=== PATIENT | female | born 1990 | race Caucasian/White ===

== ENCOUNTER 2016-10-05 18:16 | Emergency (ER) | payer OTHER ==
[~2016-10-05] VITALS: Ht 152.4 cm; Wt 47.1 kg
[~2016-10-05 18:16] MED LIST: ANSHCCR TOP; LEVO-713 PO; TRAM-10 PO
[2016-10-05 18:19] VITALS: TEMP 37.1; Ht 152.4 cm; Wt 47.1 kg
--- NOTE | 2016-10-05 19:02 | DIAGNOSTIC IMAGING REPORT ---
LEFT SHOULDER MIN 2 VIEWS ROUTINE CLINICAL HISTORY: left shoulder pain, no injury pain COMPARISON: None. DISCUSSION: The bones and joint spaces appear intact. There is no evidence of fracture, dislocation or bony disease. There is no evidence for soft tissue swelling. IMPRESSION: Negative study. Electronically signed by: Jairo Duncan M.D. 10/05/2016 7:00 PM Dictated Date/Time: 10/05/2016 7:00 PM
[2016-10-05] MEDS ORDERED: CEFTRIAXONE SOD 350MG/ML 1 GM VIAL IM ONE (19:30)
[2016-10-05] MEDS ORDERED: AZITHROMYCIN 250 MG TAB PO ONE (19:30)
--- NOTE | 2016-10-05 19:32 | EMERGENCY ROOM VISIT NOTE ---
ED Visit Note First contact with patient: 18:24 CHIEF COMPLAINT: Shoulder pain HISTORY OF PRESENT ILLNESS: This 26-year-old female patient presents to the emergency department ambulatory complaining of pain in the left shoulder for the past 2 days. 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 She states the pain is minimal at rest, but worsens with any overhead movements. She rates the discomfort a 7/ 10. She is not taking any medications at home for symptoms. She denies any injuries of the shoulder. She denies any history of shoulder problems. She denies any numbness or weakness of the left arm. She denies any pain in her neck, back or chest. The patient is also concerned because her ex-boyfriend recently informed her that he tested positive for herpes. She is concerned for possible STDs. She denies any painful lesions, itching or abnormal vaginal discharge. Additionally, she reports that she had 2 menstrual periods this month. She reports that she takes control pills and takes her pills everyday as prescribed. She denies any abdominal cramping at this time. She has any urinary symptoms or chance of . REVIEW OF SYSTEMS: A 6 system review of systems was performed with positives and pertinent negatives in the HPI. ALLERGIES: Amoxicillin MEDICATIONS: See med list PMH: No significant past medical history. SOCIAL HISTORY: The patient lives locally with family. PHYSICAL EXAM: Vital Signs: Reviewed nurse's notes, vital signs stable. GENERAL: This is a 26-year-old female, in no acute distress, but appears to be in pain, well-developed, well-nourished. MUSCULOSKELETAL: There is no deformity in the contour of the left shoulder and there are no tawanna deformities noted. There is tenderness over the anterior left shoulder. The patient's range of motion is full. Supraspinatus strength 5/ 5. There is no clavicle tenderness. No tenderness of the humerus, elbow, wrist, or hand. Sharepoint Manager strength 5/5. Radial pulse 2+. NECK: No tenderness to palpation over the cervical spine. HEART: Regular rate and rhythm without murmurs gallops or rubs. LUNGS: Clear to auscultation bilaterally without wheezes, rales or rhonchi. No accessory muscle use. No retractions. NEURO: The patient is alert and oriented to person, place, and time. Normal sensation to light and sharp touch. Capillary refill less than 2 seconds. ABDOMEN: Soft, nontender to palpation. PELVIC: External genitalia unremarkable. No concerning lesions. There is a moderate amount of whitish discharge within the vaginal vault. No evidence of cervicitis. No cervical motion tenderness. RADIOGRAPHIC FINDINGS: LEFT SHOULDER MIN 2 VIEWS ROUTINE CLINICAL HISTORY: left shoulder pain, no injury pain COMPARISON: None. DISCUSSION: The bones and joint spaces appear intact. There is no evidence of fracture, dislocation or bony disease. There is no evidence for soft tissue swelling. IMPRESSION: Negative study. EMERGENCY DEPARTMENT COURSE: I examined the patient. An X-ray of the left shoulder was reviewed by myself and radiology and shows no acute findings. The patient was instructed to rest, take anti-inflammatories and follow-up with orthopedics regarding her shoulder pain. Urine was negative. A pelvic exam was performed and cultures were obtained and pending. The patient was offered prophylactic treatment for gonorrhea and chlamydia and agreed to this. She was given 250 milligrams Rocephin IM and 1 g Zithromax by mouth. She will be notified of any positive results. She was instructed to follow-up with her [facility] regarding her abnormal menstrual bleeding. She will return for worsening symptoms. She verbalized understanding and was discharged home in good condition. DIAGNOSIS: Shoulder pain, vaginal discharge Problem List Medical Problems: (1) Acute gastric ulcer Status: Resolved (2) Bipolar disorder Status: Chronic (3) Bronchitis Status: Resolved (4) Depression Status: Chronic (5) H/O gastric ulcer Status: Chronic (6) H/o marijuana abuse Status: Chronic (7) H/o tobacco abuse Status: Chronic (8) Kidney stones Status: Resolved Surgical Problems: (1) H/O wisdom tooth extraction Status: Chronic (2) S/P ear surgery Status: Chronic Current/Historical Medications Scheduled Citalopram (Citalopram Hydrobromide), 20 MG PO DAILY Levonorgestrel & Eth Estradiol (Lutera), 1 TAB PO DAILY Scheduled PRN Hydrocortisone (Proctosol Hc), 1 APPLN TOP UD PRN for Hemorrhoids Tramadol (Ultram), 1-2 TAB PO Q4H PRN for Pain Allergies Coded Allergies: Amoxicillin (Unverified Allergy, Unknown, ITCHY, REDNESS, 10/05/16) Vital Signs Date Time Temp Pulse Resp B/P Pulse Ox O2 Delivery O2 Flow Rate FiO2 10/05/16 18:19 37.1 95 17 135/89 91 Room Air Laboratory Results Test 10/05/16 18:45 Urine Test NEG (NEG) Departure Information Impression Primary Impression: Left shoulder pain Additional Impression: Vaginal discharge Dispostion Home / Self-Care Condition GOOD Referrals Sherice Cross D.O. (PCP) Kit Muñiz M.D. Patient Instructions My [facility] Additional Instructions You have been treated in the Emergency Department for Shoulder Pain. You will be notified if any of your culture results become positive. For pain control, you can use the following [id number] medicines (if >12 yo): - Regular strength (325mg/tab) Tylenol (acetaminophen) 2 tabs every 4-6 hours as needed. Do not exceed 12 tablets in a 24 hour period. Avoid taking more than 4 grams (4000 mg) of Tylenol per day. This includes any other sources of acetaminophen you may take on a regular basis. - Regular strength (200 mg/tab) Advil (ibuprofen) 1-2 tabs every 4-6 hours as needed. Do not exceed a dose of 3200 mg per day. If this is a recent injury (<24 hrs), ice can be applied to the area of pain for the first 3 days to help decrease pain and inflammation. You should follow-up with orthopedics regarding your left shoulder pain. Follow-up with [facility] as scheduled next week. Return to the Emergency Department if your current symptoms worsen despite treatment course outlined above, or if you develop any of the following symptoms : intractable pain despite aforementioned treatment course or new onset of numbness or tingling of the arm. Problem Qualifiers Primary Impression: Left shoulder pain Chronicity: acute Qualified Codes: M25.512 - Pain in left shoulder
[2016-10-05 19:52] VITALS: BP 111/54; PULSE 67; O2SAT 97
[2016-10-09 09:32] LABS: CHLAMYDIA TRACH RNA*** NOT DETECTED (NOT DETECTED); GC (NEIS GONORRHOEAE)RNA** NOT DETECTED (NOT DETECTED)
[2017-04-12] MEDS ORDERED: CLX/20 PO (16:48)
== END 2016-10-05 19:53 | disposition home or self-care (01) ==
LOC: C.EDB 18:18 → C.EDD 19:53
DX: M25.512 Pain in left shoulder (principal); N89.8 Other specified noninflammatory disorders of vagina; F31.9 Bipolar disorder, unspecified; F32.9 Major depressive disorder, single episode, unspecified; K25.9 Gastric ulcer, unspecified as acute or chronic, without hemorrhage or perforation; F12.10 Cannabis abuse, uncomplicated; Z72.0 Tobacco use; Z87.442 Personal history of urinary calculi; Z79.3 Long term (current) use of hormonal contraceptives; Z79.899 Other long term (current) drug therapy

== ENCOUNTER 2016-11-11 10:18 | Emergency (ER) | payer OTHER ==
[~2016-11-11] VITALS: Ht 152.4 cm; Wt 47.0 kg
[2016-11-11 10:32] VITALS: TEMP 37.1; Ht 152.4 cm; Wt 47.0 kg
[2016-11-11] MEDS ORDERED: SODIUM CHLORIDE 0.9% 1000ML 1,000 ML IV STA (10:45)
[2016-11-11] MEDS ORDERED: KETOROLAC TROMETHAMINE 30 MG/ML VIAL IV STA (10:45)
[2016-11-11] MEDS ORDERED: ALBUT/IPRATROP 3MG/0.5MG NEB 3 ML VIAL INH ONE (10:45)
--- NOTE | 2016-11-11 10:48 | EMERGENCY ROOM VISIT NOTE ---
History Report prepared by Freddy: Ra Lovell Under the Supervision of: Dr. Sly Estrada M.D. First contact with patient: 10:39 Chief Complaint: ILLNESS Stated Complaint: CHEST PAIN History of Present Illness The patient is a 26 year old female who presents to the Emergency Room with complaints of persistent chest pain beginning a couple days ago. She notes that she has GERD and initially thought this was reflux, but adds that her symptoms are worse today. She reports that taking deep breaths worsens her pain, and that her pain radiates to her sides. She has not taken anything for her pain. The patient adds that she has been shaking a lot recently. She also complains of abdominal cramps, and reports switching her control medication last month. She states having 4 periods in the last 2 months. The patient smokes but is in the process of quitting. She does not use inhalers, and is unsure if she is . Source of History: patient Onset: a couple days ago Position: chest Quality: other (chest pain) Timing: other (persistent) Modifying Factors (Worsening): breathing (deep breaths) Associated Symptoms: + abdominal pain Note: The patient reports recent shakiness. Review of Systems See HPI for pertinent positives & negatives. A total of 10 systems reviewed and were otherwise negative. Past Medical & Surgical Medical Problems: (1) Acute gastric ulcer (2) Bipolar disorder (3) Bronchitis (4) Clostridium difficile colitis (5) Depression (6) H/O gastric ulcer (7) H/o marijuana abuse (8) H/o tobacco abuse (9) Kidney stones Surgical Problems: (1) H/O wisdom tooth extraction (2) S/P ear surgery Family History Cancer FH: gallbladder disease MOTHER SISTER Heart disease Social History Smoking Status: Current Every Day Smoker Alcohol Use: occasionally Drug Use: marijuana Marital Status: in relationship Housing Status: lives with family Occupation Status: employed Current/Historical Medications Scheduled Azithromycin (Zithromax), 250 MG PO DAILY Citalopram (Citalopram Hydrobromide), 20 MG PO DAILY Levonorgestrel & Eth Estradiol (Lutera), 1 TAB PO DAILY Prednisone (Prednisone Tab), 0 PO DAILY Scheduled PRN Hydrocodone W/ Homatropine (Hycodan 5/1.5MG 5 Ml), 5 ML PO HS PRN for Cough Allergies Coded Allergies: Amoxicillin (Unverified Allergy, Unknown, ITCHY, REDNESS, 11/11/16) Physical Exam Vital Signs Date Time Temp Pulse Resp B/P Pulse Ox O2 Delivery O2 Flow Rate FiO2 11/11/16 13:10 69 18 96/66 100 11/11/16 12:16 69 18 96/66 100 Nebulizer 8.0 11/11/16 12:02 58 12 96 Room Air 11/11/16 10:55 68 11/11/16 10:51 96 Room Air 11/11/16 10:51 96 Room Air 11/11/16 10:32 37.1 90 18 118/71 96 Room Air Physical Exam GENERAL: Patient is a healthy-appearing well-nourished HEAD: Normocephalic atraumatic EYES: Ocular movements intact pupils equal and react to light OROPHARYNX mucous membranes are moist no exudates present no erythema or edema present NECK: Supple no nuchal rigidity CHEST: Chest wall tender to palpation. LUNGS: Bilateral wheezing. CARDIAC: Normal S1 and S2 ABDOMEN: Soft nontender no guarding BACK: No CVA tenderness EXTREMITIES: No pain upon palpation normal muscle strength in all groups no clubbing cyanosis or edema NEURO: Patient is following commands is answering questions appropriately. Alert and oriented x3 Cranial Nerves 2-12 grossly intact Medical Decision & Procedures ER Provider Diagnostic Interpretation: Radiology results as stated below per my review and radiologist interpretation: CHEST ONE VIEW PORTABLE FINDINGS: There is no pneumothorax or pleural effusion. Lung volumes are normal. Lungs are clear. Cardiac size is normal. Mediastinal contours are normal. There is no evidence of pulmonary edema. IMPRESSION: No acute cardiopulmonary findings. Electronically signed by: Blake Francois M.D. 11/11/2016 11:28 AM Dictated Date/Time: 11/11/2016 11:26 AM Laboratory Results 11/11/16 11:07 Red Blood Count 4.53, Mean Corpuscular Volume 89.0, Mean Corpuscular Hemoglobin 30.5, Mean Corpuscular Hemoglobin Concent 34.2, Mean Platelet Volume 10.0, Neutrophils (%) (Auto) 77.6, Lymphocytes (%) (Auto) 17.5, Monocytes (%) (Auto) 3.4, Eosinophils (%) (Auto) 0.8, Basophils (%) (Auto) 0.3, Neutrophils # (Auto) 11.12, Lymphocytes # (Auto) 2.50, Monocytes # (Auto) 0.49, Eosinophils # (Auto) 0.11, Basophils # (Auto) 0.04 11/11/16 11:07 Test 11/11/16 10:45 11/11/16 11:07 11/11/16 11:09 11/11/16 11:13 Urine Color YELLOW Urine Appearance CLEAR (CLEAR) Urine pH 5.5 (4.5-7.5) Urine Specific [place] 1.025 (1.000-1.030) Urine Protein NEG (NEG) Urine Glucose (UA) NEG (NEG) Urine Ketones NEG (NEG) Urine Occult Blood NEG (NEG) Urine Nitrite NEG (NEG) Urine Bilirubin NEG (NEG) Urine Urobilinogen NEG (NEG) Urine Leukocyte Esterase SMALL (NEG) Urine WBC (Auto) 5-10 /hpf (0-5) Urine RBC (Auto) 0-4 /hpf (0-4) Urine Hyaline Casts (Auto) 1-5 /lpf (0-5) Urine Epithelial Cells (Auto) >30 /lpf (0-5) Urine Bacteria (Auto) 1+ (NEG) Urine Test NEG (NEG) White Blood Count 14.32 K/uL (4.8-10.8) Red Blood Count 4.53 M/uL (4.2-5.4) Hemoglobin 13.8 g/dL (12.0-16.0) Hematocrit 40.3 % (37-47) Mean Corpuscular Volume 89.0 fL (80-100) Mean Corpuscular Hemoglobin 30.5 pg (25-34) Mean Corpuscular Hemoglobin Concent 34.2 g/dl (32-36) Platelet Count 316 K/uL (130-400) Mean Platelet Volume 10.0 fL (7.4-10.4) Neutrophils (%) (Auto) 77.6 % Lymphocytes (%) (Auto) 17.5 % Monocytes (%) (Auto) 3.4 % Eosinophils (%) (Auto) 0.8 % Basophils (%) (Auto) 0.3 % Neutrophils # (Auto) 11.12 K/uL (1.4-6.5) Lymphocytes # (Auto) 2.50 K/uL (1.2-3.4) Monocytes # (Auto) 0.49 K/uL (0.11-0.59) Eosinophils # (Auto) 0.11 K/uL (0-0.5) Basophils # (Auto) 0.04 K/uL (0-0.2) RDW Standard Deviation 45.6 fL (36.4-46.3) RDW Coefficient of Variation 13.8 % (11.5-14.5) Immature Granulocyte % (Auto) 0.4 % Immature Granulocyte # (Auto) 0.06 K/uL (0.00-0.02) Est Creatinine Clear Calc Drug Dose 77.8 ml/min Estimated GFR () 120.8 Estimated GFR (Non- 104.2 BUN/Creatinine Ratio 17.3 (10-20) Calcium Level 8.4 mg/dl (8.5-10.1) Total Bilirubin 0.3 mg/dl (0.2-1) Direct Bilirubin < 0.1 mg/dl (0-0.2) Aspartate Amino Transf (AST/SGOT) 9 U/L (15-37) Alanine Aminotransferase (ALT/SGPT) 12 U/L (12-78) Alkaline Phosphatase 61 U/L (45-117) Total Creatine Kinase 86 U/L (26-192) Creatine Kinase MB 1.1 ng/ml (0.5-3.6) Creatine Kinase MB Ratio 1.3 (0-3.0) Troponin I < 0.015 ng/ml (0-0.045) Total Protein 7.1 gm/dl (6.4-8.2) Albumin 3.4 gm/dl (3.4-5.0) Lipase 239 U/L (73-393) Bedside D-Dimer 191 ng/mlFEU (0-450) Bedside Hemoglobin 13.6 g/dl (12.0-16.0) Bedside Hematocrit 40 % (37-47) Bedside Sodium 141 mEq/L (135-144) Bedside Potassium 4.4 mEq/L (3.3-5.0) Bedside Chloride 104 mEq/L (101-112) Bedside Total CO2 24 mEq/l (24-31) Anion Gap 19.0 mmol/L (16-25) Bedside Blood Urea Nitrogen 14 mg/dl (7-18) Bedside Creatinine 0.8 mg/dl (0.6-1.3) Bedside Glucose (other) 75 mg/dl (70-99) Bedside Ionized Calcium (Marce) 1.14 mmol/l (1.12-1.32) Labs reviewed by ED physician. Medications Administered Medications (Trade) Dose Ordered Sig/Bret Route Start Time Stop Time Status Last Admin Dose Admin Sodium Chloride (Nss 1000ml) 1,000 ml @ 999 mls/hr Q1H1M STAT IV 11/11/16 10:45 11/11/16 11:45 DC 11/11/16 10:45 999 MLS/HR Ketorolac Tromethamine (Toradol Inj) 30 mg NOW STAT IV 11/11/16 10:45 11/11/16 10:48 DC 11/11/16 10:45 30 MG Albuterol/ Ipratropium (Duoneb) 12 ml ONE ONCE INH 11/11/16 10:45 11/11/16 10:48 DC 11/11/16 12:02 12 ML Azithromycin (Zithromax Tab) 500 mg NOW STAT PO 11/11/16 12:48 11/11/16 12:50 DC 11/11/16 12:56 500 MG Methylprednisolone Sodium Succinate (Solu-Medrol IV) 60 mg NOW STAT IV 11/11/16 12:48 11/11/16 12:50 DC 11/11/16 12:57 60 MG Albuterol (Ventolin Hfa Inhaler) 2 puffs NOW STAT INH 11/11/16 12:49 11/11/16 12:50 DC 11/11/16 12:57 2 PUFFS ECG Indication: other (illness) Rate (beats per minute): 68 Rhythm: sinus rhythm Findings: no acute ischemic change, prolonged QT ED Course 1040: Past medical records reviewed. The patient was evaluated in room A11B. A complete history and physical examination was performed. 1045: Ordered Duoneb 12 ml INH, Toradol Inj 30 mg IV, and NSS 1,000 ml @ 999 mls /hr IV. 1248: Ordered Solu-Medrol IV 60 mg IV, and Zithromax Tab 500 mg PO. 1249: Ordered Albuterol 2 puffs INH. 1300: Upon reexamination the patient is doing well. I discussed results and treatment plan with the patient. She verbalizes agreement and understanding. The patient is ready for discharge. Medical Decision Differential diagnosis: Etiologies such as infections, reactive airway disease, pneumonia, pneumothorax , COPD, CHF, cardiac ischemia, pulmonary embolism, musculoskeletal, gastrointestinal, as well as others were entertained. This is a 26-year-old female who presents emergency department with pleuritic chest pain. Based on the patient's history, she has a normal d-dimer along with a normal CK-MB and troponin. She also has a normal EKG. The patient was given an hour-long breathing treatment in the emergency department and started on Solu-Medrol. The patient has a normal chest x-ray. I'll continue the patient on an inhaler at home along with azithromycin and prednisone. I do believe the patient is safe enough to be discharged home for follow-up with her primary care physician's. Patient was in agreement with the treatment plan. Impression Primary Impression: Bronchitis Scribe Attestation The scribe's documentation has been prepared under my direction and personally reviewed by me in its entirety. I confirm that the note above accurately reflects all work, treatment, procedures, and medical decision making performed by me. Departure Information Dispostion Home / Self-Care Prescriptions Azithromycin (ZITHROMAX) 250 Mg Tab 250 MG PO DAILY, #4 TAB Prov: Sly Estrada MD 11/11/16 Hydrocodone W/ Homatropine (HYCODAN 5/1.5MG 5 ML) 1 Syp Syp 5 ML PO HS Y for Cough, #120 ML Prov: Sly Estrada MD 11/11/16 Prednisone (Prednisone Tab) 20 Mg Tab 0 PO DAILY, #7 TAB 2 TABS DAILY FOR 2 DAYS, THEN 1 TAB DAILY FOR 2 DAYS, THEN 1/2 TAB DAILY FOR 2 DAYS. Prov: Sly Estrada MD 11/11/16 Referrals Sherice Cross DM[facility]inOMartin (PCP) Patient Instructions ED Bronchitis Abx Tx, My [facility] Additional Instructions Use inhaler twice every 6 hours You received narcotic or benzodiazepene medication while in the emergency room today. Do not drive, operate heavy machinery, or drink alcohol under the influence of this medication. Take 600 mg Ibuprofen every 6 hours Take 1000 mg Tylenol every 6 hours Take Hycodan for breakthrough pain Radiographs and CTs will be reread by a radiologist in the morning. Culture results are usually available in approx 48 hours You have been examined and treated today on an emergency basis only. This is not a substitute for, or an effort to provide, complete comprehensive medical care. It is impossible to recognize and treat all injuries or illnesses in a single emergency department visit. It is therefore important that you follow up closely with Dr Cross. Call as soon as possible for an appointment. Thank you for your time and consideration. I look forward to speaking with you again soon. Please don't hesitate to call us if you have any questions.
[2016-11-11 10:51] VITALS: O2SAT 96
[2016-11-11 11:10] LABS: URINE APPEARANCE CLEAR (CLEAR); URINE BILIRUBIN NEG (NEG); URINE COLOR YELLOW; URINE EPITHELIAL CELL AUTO >30 /lpf (0-5); URINE NITRITE NEG (NEG); URINE PH 5.5 (4.5-7.5); URINE SPECIFIC GRAVITY 1.025 (1.000-1.030); UROBILINOGEN NEG (NEG); ZZUR CULT IF INDIC CLEAN CATCH YES
[2016-11-11 11:12] LABS: MANUAL MICROSCOPIC REQUIRED? NO; REVIEW REQ? NO
--- NOTE | 2016-11-11 11:30 | DIAGNOSTIC IMAGING REPORT ---
CHEST ONE VIEW PORTABLE CLINICAL HISTORY: Chest pain. COMPARISON STUDY: Chest radiograph August 27, 2015. FINDINGS: There is no pneumothorax or pleural effusion. Lung volumes are normal. Lungs are clear. Cardiac size is normal. Mediastinal contours are normal. There is no evidence of pulmonary edema. IMPRESSION: No acute cardiopulmonary findings. Electronically signed by: Blake Francois M.D. 11/11/2016 11:28 AM Dictated Date/Time: 11/11/2016 11:26 AM
[2016-11-11 11:41] LABS: BASO % 0.3 %; BASO ABS # 0.04 K/uL (0-0.2); COMPLETE YES; EOS % 0.8 %; HEMATOCRIT 40.3 % (37-47); IG% 0.4 %; LYMPH % 17.5 %; MEAN CORPUSCULAR HEMOGLOBIN 30.5 pg (25-34); MEAN CORPUSCULAR HGB CONC 34.2 g/dl (32-36); MONO % 3.4 %; NEUT % 77.6 %; PLATELET COUNT 316 K/uL (130-400); RED BLOOD COUNT 4.53 M/uL (4.2-5.4); WHITE BLOOD COUNT 14.32 K/uL (4.8-10.8)
[2016-11-11 12:00] LABS: ALT/SGPT 12 U/L (12-78); AST/SGOT 9 U/L (15-37); BLOOD UREA NITROGEN 13 mg/dl (7-18); BUN/CREATININE RATIO 17.3 (10-20); CALCIUM 8.4 mg/dl (8.5-10.1); CARBON DIOXIDE 27 mmol/L (21-32); CHLORIDE 107 mmol/L (98-107); CREATININE 0.78 mg/dl (0.60-1.20); GLUCOSE 72 mg/dl (70-99); POTASSIUM 4.3 mmol/L (3.5-5.1); SODIUM 143 mmol/L (136-145)
[2016-11-11 12:02] VITALS: PULSE 58; O2SAT 96
[2016-11-11 12:06] LABS: ALKALINE PHOSPHATASE 61 U/L (45-117); CKMB/CK RATIO 1.3 (0-3.0)
[2016-11-11 12:36] LABS: ISTAT CREATININE 0.8 mg/dl (0.6-1.3); ISTAT HEMOGLOBIN 13.6 g/dl (12.0-16.0); ISTAT IONIZED CALCIUM 1.14 mmol/l (1.12-1.32)
[2016-11-11] MEDS ORDERED: METHYLPREDNISOLONE 125 MG VIAL IV STA (12:48)
[2016-11-11] MEDS ORDERED: AZITHROMYCIN 250 MG TAB PO STA (12:48)
[2016-11-11] MEDS ORDERED: ALBUTEROL HFA 8 GM INHALER INH STA (12:49)
[2016-11-11] MEDS ORDERED: HYDR5SYP11 PO (12:51)
[2016-11-11] MEDS ORDERED: AZIT250T5 PO (12:51)
[2016-11-11] MEDS ORDERED: PRED20TA2 PO (12:51)
[2016-11-11 13:10] VITALS: BP 96/66; PULSE 69; O2SAT 100
[2017-04-12] MEDS ORDERED: CLX/20 PO (16:48)
== END 2016-11-11 13:24 | disposition home or self-care (01) ==
LOC: C.EDB 10:19 → C.EDA 13:24
DX: J40 Bronchitis, not specified as acute or chronic (principal); F31.9 Bipolar disorder, unspecified; F17.200 Nicotine dependence, unspecified, uncomplicated; Z87.19 Personal history of other diseases of the digestive system; Z86.19 Personal history of other infectious and parasitic diseases; Z98.890 Other specified postprocedural states; Z79.899 Other long term (current) drug therapy; Z88.1 Allergy status to other antibiotic agents; Z80.9 Family history of malignant neoplasm, unspecified; Z83.79 Family history of other diseases of the digestive system; Z82.49 Family history of ischemic heart disease and other diseases of the circulatory system

== ENCOUNTER 2017-04-12 21:17 | Emergency (ER) | payer OTHER ==
[~2017-04-12] VITALS: Ht 152.4 cm; Wt 48.0 kg
[~2017-04-12 21:17] MED LIST changes: -ANSHCCR TOP; +CLX/20 PO; +PRED20TA2 PO; -TRAM-10 PO
[2017-04-12 21:19] VITALS: TEMP 37.1; Ht 152.4 cm; Wt 48.0 kg
[2017-04-12] MEDS ORDERED: SODIUM CHLORIDE 0.9% 1000ML 1,000 ML IV STA ×2 (21:30)
[2017-04-12] MEDS ORDERED: KETOROLAC TROMETHAMINE 30 MG/ML VIAL IV STA (21:30)
[2017-04-12 21:43] VITALS: O2SAT 97
[2017-04-12 21:52] LABS: URINE APPEARANCE CLEAR (CLEAR); URINE BILIRUBIN NEG (NEG); URINE COLOR YELLOW; URINE NITRITE NEG (NEG); URINE PH 6.5 (4.5-7.5); URINE SPECIFIC GRAVITY 1.014 (1.000-1.030); UROBILINOGEN NEG (NEG); ZZUR CULT IF INDIC CLEAN CATCH NO
[2017-04-12 21:56] LABS: MANUAL MICROSCOPIC REQUIRED? NO; REVIEW REQ? NO
[2017-04-12 21:57] LABS: BASO % 0.1 %; BASO ABS # 0.02 K/uL (0-0.2); COMPLETE YES; EOS % 0.5 %; HEMATOCRIT 41.1 % (37-47); IG% 0.4 %; LYMPH % 27.1 %; LYMPH ABS # 4.09 K/uL (1.2-3.4); MEAN CELL VOLUME 87.1 fL (80-100); MEAN CORPUSCULAR HEMOGLOBIN 31.4 pg (25-34); MEAN PLATELET VOLUME 9.7 fL (7.4-10.4); MONO % 4.2 %; NEUT % 67.7 %; PLATELET COUNT 323 K/uL (130-400); RED BLOOD COUNT 4.72 M/uL (4.2-5.4); WHITE BLOOD COUNT 15.09 K/uL (4.8-10.8)
[2017-04-12 22:14] LABS: ALT/SGPT 10 U/L (12-78); BLOOD UREA NITROGEN 8 mg/dl (7-18); BUN/CREATININE RATIO 9.9 (10-20); CALCIUM 8.7 mg/dl (8.5-10.1); CARBON DIOXIDE 25 mmol/L (21-32); CHLORIDE 108 mmol/L (98-107); CREATININE 0.82 mg/dl (0.60-1.20); GLUCOSE 81 mg/dl (70-99); POTASSIUM 3.5 mmol/L (3.5-5.1); SODIUM 140 mmol/L (136-145)
[2017-04-12 22:24] LABS: ALKALINE PHOSPHATASE 57 U/L (45-117); AST/SGOT 13 U/L (15-37); THYROID STIMULATING HORMONE 0.763 uIu/ml (0.300-4.500)
[2017-04-12 22:25] LABS: PREG INTERNAL NEGATIVE QC NEG CLEAR BACKGROUND; PREG INTERNAL POSITIVE QC POS CONTROL LINE
[2017-04-12] MEDS ORDERED: BCPILLS PO (22:37)
--- NOTE | 2017-04-12 22:37 | DIAGNOSTIC IMAGING REPORT ---
PELVIC COMPLETE NON OB HISTORY: 27 years-old Female acute severe pelvic pain, laterality not specified. COMPARISON: Pelvic ultrasound 08/23/2015 TECHNIQUE: Multiple real-time sonographic images of the deep pelvic structures were obtained transabdominally and transvaginally assessing grayscale appearance, color and spectral flow. FINDINGS: TRANSABDOMINAL: Anteflexed uterus is seen, 7.8 x 4.8 x 6.1 cm. Endometrium measured 0.9 cm. No myometrial mass lesion identified. Left ovary is seen, 4.7 x 3.2 x 3.8 cm. Within the left ovary there is a complex mildly echogenic structure which is ovoid in morphology, 3.1 x 3.3 x 2.9 cm with increased through transmission. Arterial inflow is documented within the left ovary. No definite flow is seen within the aforementioned lesion of the left ovary. TRANSVAGINAL: Anteflexed uterus is seen, 8.2 x 3.9 x 4.8 cm. No focal myometrial mass lesions. The right ovary measures 2.9 x 1.6 x 1.6 cm and is unremarkable with arterial inflow documented. Left ovary is seen, 4.3 x 2.9 x 3.9 cm. Complex structure of the left ovary is seen which is mildly echogenic, 3.7 x 2.0 x 3.2 cm without definite internal vascularity. Arterial inflow documented within the left ovary. Endometrium measures 0.8 cm. Mild to moderate amount of free pelvic fluid is present. IMPRESSION: 1. Complex mildly echogenic lesion of the left ovary is seen measuring up to 3.7 cm suggesting hemorrhagic cyst with associated [id number] amount of free pelvic fluid. No evidence of left ovarian torsion. 2. Normal sonographic appearance of the right ovary, uterus and endometrium. The above report was generated using voice recognition software. It may contain grammatical, syntax or spelling errors. Electronically signed by: Fred Hidalgo M.D. 04/12/2017 10:36 PM Dictated Date/Time: 04/12/2017 10:32 PM
[2017-04-12] MEDS ORDERED: IBUP-1050 PO (22:38)
[2017-04-13] MEDS ORDERED: METRONIDAZOLE 250 MG TAB PO STA (00:15)
[2017-04-13] MEDS ORDERED: METR-163 PO (00:18)
[2017-04-13 00:30] VITALS: BP 101/55; PULSE 68; O2SAT 96
--- NOTE | 2017-04-13 05:52 | EMERGENCY ROOM VISIT NOTE ---
History First contact with patient: 21:26 Chief Complaint: ABDOMINAL PAIN Stated Complaint: SEVERE ABD PAIN History of Present Illness The patient is a 27 year old female who presents to the Emergency Room with complaints of pelvic pain that radiates up to her umbilicus for the past 2 days , 7 out of 10. Nothing makes it better or worse. It does not radiate to any other place. Menstrual cycle was 2 weeks ago. . Patient denies vaginal itching, vaginal discharge, urinary symptoms, fever, chills, vomiting, diarrhea , back pain, chest pain, dyspnea. She is tolerating by mouth fluids and food. Review of Systems See HPI for pertinent positives & negatives. A total of 10 systems reviewed and were otherwise negative. Past Medical/Surgical History Medical Problems: (1) Acute gastric ulcer (2) Bipolar disorder (3) Bronchitis (4) Clostridium difficile colitis (5) Depression (6) H/O gastric ulcer (7) H/o marijuana abuse (8) H/o tobacco abuse (9) Kidney stones Surgical Problems: (1) H/O wisdom tooth extraction (2) S/P ear surgery Family History Cancer FH: gallbladder disease MOTHER SISTER Heart disease Social History Smoking Status: Current Every Day Smoker Alcohol Use: occasionally Drug Use: marijuana Marital Status: in relationship Housing Status: lives with family Occupation Status: employed Current/Historical Medications Scheduled Control Pills ( Control Pills), 1 TAB PO DAILY Citalopram (Citalopram Hydrobromide), 20 MG PO DAILY Metronidazole (Flagyl), 500 MG PO BID Scheduled PRN Ibuprofen (Advil), 600 MG PO DAILY PRN for Pain Physical Exam Vital Signs Date Time Temp Pulse Resp B/P (MAP) Pulse Ox O2 Delivery O2 Flow Rate FiO2 04/13/17 00:30 68 19 101/55 96 04/13/17 00:22 67 20 97 04/13/17 00:02 96/50 04/12/17 23:52 62 24 97 04/12/17 23:33 73 18 97/50 97 Room Air 04/12/17 23:30 97/50 04/12/17 22:52 75 21 04/12/17 22:47 77 23 98 04/12/17 21:59 80 04/12/17 21:47 80 17 97 04/12/17 21:44 116/65 04/12/17 21:43 97 Room Air 04/12/17 21:19 37.1 99 18 123/75 94 Room Air Physical Exam VITALS: Vitals are noted on the nurse's note and reviewed by myself. Vital signs stable. GENERAL: Pleasant female, in no acute distress, nondiaphoretic, well-developed well-nourished. SKIN: The skin was without rashes, erythema, edema, or bruising. There is no tenting of the skin. Capillary reflex less than 2 seconds. HEAD: Normocephalic atraumatic. EARS: External auditory canals clear, tympanic membranes pearly sánchez without erythema or effusion bilaterally. EYES: Pupils equal round and reactive to light and accommodation. Conjunctivae without injection, sclerae without icterus. Extraocular movements intact. NOSE: Patent, turbinates without inflammation or discharge. MOUTH: Mucous membranes moist. Pharynx without erythema or exudate. Uvula midline. Airway patent. Tongue does not deviate. NECK: Supple without nuchal rigidity. No lymphadenopathy. No thyromegaly. Cervical spine is nontender. No JVD. HEART: Regular rate and rhythm without murmurs gallops or rubs. LUNGS: Clear to auscultation bilaterally without wheezes, rales or rhonchi. No dullness to percussion. No retractions or accessory muscle use. ABDOMEN: Positive bowel sounds x 4. Normal tympanic percussion. Soft, tender to palpation suprapubic region, no CVA tenderness, without masses or organomegaly. Mina sign negative. No guarding or rebound tenderness. exam: Normal external genitalia, normal white discharge in the vault, slit os , no CMT, left or adnexal tenderness cultures taken and sent workers' compensation commissioner present MUSCULOSKELETAL: No muscle atrophy, erythema, or edema noted. NEURO: Patient was alert and oriented to person place and time. Normal sensation to light and sharp touch. No focal neurological deficits. Medical Decision & Procedures Laboratory Results 04/12/17 21:45 Red Blood Count 4.72, Mean Corpuscular Volume 87.1, Mean Corpuscular Hemoglobin 31.4, Mean Corpuscular Hemoglobin Concent 36.0, Mean Platelet Volume 9.7, Neutrophils (%) (Auto) 67.7, Lymphocytes (%) (Auto) 27.1, Monocytes (%) (Auto) 4.2, Eosinophils (%) (Auto) 0.5, Basophils (%) (Auto) 0.1, Neutrophils # (Auto) 10.20, Lymphocytes # (Auto) 4.09, Monocytes # (Auto) 0.64, Eosinophils # (Auto) 0.08, Basophils # (Auto) 0.02 04/12/17 21:45 Test 04/12/17 21:35 04/12/17 21:45 04/12/17 23:20 Urine Color YELLOW Urine Appearance CLEAR (CLEAR) Urine pH 6.5 (4.5-7.5) Urine Specific Coolin 1.014 (1.000-1.030) Urine Protein NEG (NEG) Urine Glucose (UA) NEG (NEG) Urine Ketones NEG (NEG) Urine Occult Blood NEG (NEG) Urine Nitrite NEG (NEG) Urine Bilirubin NEG (NEG) Urine Urobilinogen NEG (NEG) Urine Leukocyte Esterase NEG (NEG) White Blood Count 15.09 K/uL (4.8-10.8) Red Blood Count 4.72 M/uL (4.2-5.4) Hemoglobin 14.8 g/dL (12.0-16.0) Hematocrit 41.1 % (37-47) Mean Corpuscular Volume 87.1 fL (80-100) Mean Corpuscular Hemoglobin 31.4 pg (25-34) Mean Corpuscular Hemoglobin Concent 36.0 g/dl (32-36) Platelet Count 323 K/uL (130-400) Mean Platelet Volume 9.7 fL (7.4-10.4) Neutrophils (%) (Auto) 67.7 % Lymphocytes (%) (Auto) 27.1 % Monocytes (%) (Auto) 4.2 % Eosinophils (%) (Auto) 0.5 % Basophils (%) (Auto) 0.1 % Neutrophils # (Auto) 10.20 K/uL (1.4-6.5) Lymphocytes # (Auto) 4.09 K/uL (1.2-3.4) Monocytes # (Auto) 0.64 K/uL (0.11-0.59) Eosinophils # (Auto) 0.08 K/uL (0-0.5) Basophils # (Auto) 0.02 K/uL (0-0.2) RDW Standard Deviation 42.5 fL (36.4-46.3) RDW Coefficient of Variation 13.3 % (11.5-14.5) Immature Granulocyte % (Auto) 0.4 % Immature Granulocyte # (Auto) 0.06 K/uL (0.00-0.02) Anion Gap 7.0 mmol/L (3-11) Est Creatinine Clear Calc Drug Dose 73.4 ml/min Estimated GFR () 112.9 Estimated GFR (Non- 97.4 BUN/Creatinine Ratio 9.9 (10-20) Calcium Level 8.7 mg/dl (8.5-10.1) Total Bilirubin 0.3 mg/dl (0.2-1) Direct Bilirubin < 0.1 mg/dl (0-0.2) Aspartate Amino Transf (AST/SGOT) 13 U/L (15-37) Alanine Aminotransferase (ALT/SGPT) 10 U/L (12-78) Alkaline Phosphatase 57 U/L (45-117) Total Protein 7.5 gm/dl (6.4-8.2) Albumin 3.7 gm/dl (3.4-5.0) Lipase 175 U/L (73-393) Thyroid Stimulating Hormone (TSH) 0.763 uIu/ml (0.300-4.500) Human Chorionic Gonadotropin, Qual NEG (NEG) Medications Administered Medications (Trade) Dose Ordered Sig/Bret Route Start Time Stop Time Status Last Admin Dose Admin Sodium Chloride 1,000 ml @ 999 mls/hr Q1H1M STAT IV 04/12/17 21:30 04/12/17 22:30 DC 04/12/17 21:48 999 MLS/HR Sodium Chloride 1,000 ml @ 125 mls/hr Q8H STAT IV 04/12/17 21:30 04/13/17 00:57 DC 04/12/17 21:47 125 MLS/HR Ketorolac Tromethamine (Toradol Inj) 30 mg NOW STAT IV 04/12/17 21:30 04/12/17 21:34 DC 04/12/17 21:47 30 MG Metronidazole (Flagyl Tab) 500 mg NOW STAT PO 04/13/17 00:15 04/13/17 00:17 DC 04/13/17 00:27 500 MG ED Course Prior records/ancillary studies reviewed. Triage Nursing notes reviewed. The patient's history was concerning for suprapubic abdominal pain. Differential diagnosis: Differential diagnosis includes salpingitis, , ectopic , incomplete , septic , ruptured ovarian cyst, ovarian torsion, Mittelschmerz, endometritis, dysmenorrhea, appendicitis, PID, and others. Physical examination findings: As above. ER treatment provided: IV fluids, Toradol On reassessment the patient felt better. Diagnostics interpreted by me: The labs revealed negative hCG. Vaginal culture with clue cells Leukocytosis, negative urine Imaging studies: [~ rep ct add3]] PELVIC COMPLETE NON OB HISTORY: 27 years-old Female acute severe pelvic pain, laterality not specified. COMPARISON: Pelvic ultrasound 08/23/2015 TECHNIQUE: Multiple real-time sonographic images of the deep pelvic structures were obtained transabdominally and transvaginally assessing grayscale appearance, color and spectral flow. FINDINGS: TRANSABDOMINAL: Anteflexed uterus is seen, 7.8 x 4.8 x 6.1 cm. Endometrium measured 0.9 cm. No myometrial mass lesion identified. Left ovary is seen, 4.7 x 3.2 x 3.8 cm. Within the left ovary there is a complex mildly echogenic structure which is ovoid in morphology, 3.1 x 3.3 x 2.9 cm with increased through transmission. Arterial inflow is documented within the left ovary. No definite flow is seen within the aforementioned lesion of the left ovary. TRANSVAGINAL: Anteflexed uterus is seen, 8.2 x 3.9 x 4.8 cm. No focal myometrial mass lesions. The right ovary measures 2.9 x 1.6 x 1.6 cm and is unremarkable with arterial inflow documented. Left ovary is seen, 4.3 x 2.9 x 3.9 cm. Complex structure of the left ovary is seen which is mildly echogenic, 3.7 x 2.0 x 3.2 cm without definite internal vascularity. Arterial inflow documented within the left ovary. Endometrium measures 0.8 cm. Mild to moderate amount of free pelvic fluid is present. IMPRESSION: 1. Complex mildly echogenic lesion of the left ovary is seen measuring up to 3.7 cm suggesting hemorrhagic cyst with associated [id number] amount of free pelvic fluid. No evidence of left ovarian torsion. 2. Normal sonographic appearance of the right ovary, uterus and endometrium. The above report was generated using voice recognition software. It may contain grammatical, syntax or spelling errors. Exam and history seem consistent with bacterial vaginosis and left hemorrhagic cyst. Patient's pain was under control. She is well-appearing. She is advised to follow-up with her OB in a few days and to take antibiotics as directed. She is advised return to ER for increasing pain, fevers, vomiting, dizziness, worsening signs or symptoms or as needed. Patient did not have acute abdomen on exam. She is well-appearing. She was ambulating without difficulties.By the evaluation outlined above emergent etiologies such as appendicitis, torsion, diverticulitis, PUD, biliary pathology, UTI, pancreatitis , obstruction, mesenteric ischemia, aortic pathology, inflammatory bowel disease , renal colic, as well as others were deemed relatively unlikely. The pt informed about the findings as listed above. All questions were answered and pleased with the treatment. Return instructions were outlined and the patient was discharged in stable condition. Outpatient prescription management: Flagyl Referral: The patient was referred back to their primary care physician and INFORMATICS NURSE for follow-up in 2 to 3 days for a recheck of the current condition. case reviewed with my Attending Medical Decision As above Medication Reconcilliation Current Medication List: was personally reviewed by me Blood Pressure Screening Patient's blood pressure: Normal blood pressure Impression Primary Impression: Bacterial vaginosis Additional Impression: Hemorrhagic cyst of left ovary Departure Information Dispostion Home / Self-Care Condition GOOD Prescriptions Metronidazole (Flagyl) 500 Mg Tab 500 MG PO BID for 7 Days, #14 TAB Prov: Cari Harris PA-C 04/13/17 Referrals Sherice Cross D.O. (PCP) Patient Instructions My [facility] Problem Qualifiers
[2017-04-16 14:29] LABS: CHLAMYDIA TRACH RNA*** DETECTED (NOT DETECTED); GC (NEIS GONORRHOEAE)RNA** NOT DETECTED (NOT DETECTED)
--- NOTE | 2017-04-16 16:19 | Pharmacy Progress Note ---
ED Pharmacist Culture FollowUp Date of Service: Apr 16, 2017. Patient was sent home with a prescription for metronidazole, which should cover the Gardnerella growing from the patient's genital culture. Patient also with positive C. trachomatis - did not receive therapy. Called patient and informed of positive C. trachomatis result and need to return to ED for therapy. May also require coverage for PID (? abdominal pain due to PID vs. ovarian cyst). Patient reported intent to return to the ED in "30 minutes". real estate clerk informed.
== END 2017-04-13 00:30 | disposition home or self-care (01) ==
LOC: C.EDB 21:19 → C.EDA 04-13 00:30
DX: N76.0 Acute vaginitis (principal); N83.202 Unspecified ovarian cyst, left side; F31.9 Bipolar disorder, unspecified; F32.9 Major depressive disorder, single episode, unspecified; Z82.49 Family history of ischemic heart disease and other diseases of the circulatory system; F17.200 Nicotine dependence, unspecified, uncomplicated; F12.90 Cannabis use, unspecified, uncomplicated

== ENCOUNTER 2017-04-16 16:34 | Emergency (ER) | payer OTHER ==
[~2017-04-16] VITALS: Ht 152.4 cm; Wt 49.0 kg
[~2017-04-16 16:34] MED LIST changes: +BCPILLS PO; +IBUP-1050 PO; -LEVO-713 PO; +METR-163 PO; -PRED20TA2 PO
[2017-04-16 17:01] VITALS: TEMP 37.1; Ht 152.4 cm; Wt 49.0 kg
[2017-04-16] MEDS ORDERED: DOXYCYCLINE HYCLATE 100 MG CAP PO STA (18:16)
[2017-04-16] MEDS ORDERED: DOXY100C PO (18:23)
--- NOTE | 2017-04-16 18:24 | EMERGENCY ROOM VISIT NOTE ---
History Report prepared by Freddy: Ruth Bach Under the Supervision of: Dr. Prashanth Zarate M.D. First contact with patient: 18:08 Chief Complaint: REFERRED BY DOCTOR Stated Complaint: PELVIC PAIN, ABD. PAIN History of Present Illness The patient is a 27 year old female who presents to the Emergency Room for a referral. The patient was in the ED on 04/12/17 (four days ago) for pelvic pain. When in the ED she was diagnosed with a left hemorrhagic ovarian cyst that was thought to be responsible for her pelvic pain. The patient's vaginal cultures have since returned positive for Chlamydia--she was told to return to the ER for treatment. Since the patient's last visit to the ED, she notes no vaginal discharge. She does complain of cramping in her sides, nausea, chills, lower back and chest pain. The patient is allergic to Amoxicillin. There has been no fever or vomiting. Source of History: patient Onset: 4 days ago Associated Symptoms: + chills, + chest pain, + nausea, + back pain Note: Pt notes no vaginal discharge since her last visit. Pt notes cramping in sides. Review of Systems See HPI for pertinent positives & negatives. A total of 10 systems reviewed and were otherwise negative. Past Medical & Surgical Medical Problems: (1) Acute gastric ulcer (2) Bipolar disorder (3) Bronchitis (4) Clostridium difficile colitis (5) Depression (6) H/O gastric ulcer (7) H/o marijuana abuse (8) H/o tobacco abuse (9) Kidney stones Surgical Problems: (1) H/O wisdom tooth extraction (2) S/P ear surgery Family History Cancer FH: gallbladder disease MOTHER SISTER Heart disease Social History Smoking Status: Current Every Day Smoker Alcohol Use: occasionally Drug Use: marijuana Marital Status: in relationship Housing Status: lives with family Occupation Status: employed Current/Historical Medications Scheduled Control Pills ( Control Pills), 1 TAB PO DAILY Citalopram (Citalopram Hydrobromide), 20 MG PO DAILY Doxycycline Hyclate (Vibramycin), 100 MG PO BID Metronidazole (Flagyl), 500 MG PO BID Scheduled PRN Ibuprofen (Advil), 600 MG PO DAILY PRN for Pain Allergies Coded Allergies: Amoxicillin (Unverified Allergy, Unknown, ITCHY, REDNESS, 11/11/16) Physical Exam Vital Signs Date Time Temp Pulse Resp B/P (MAP) Pulse Ox O2 Delivery O2 Flow Rate FiO2 04/16/17 17:01 37.1 72 16 117/69 95 Room Air Physical Exam GENERAL: Patient is in no acute distress. HEENT: No acute trauma, normocephalic atraumatic, mucous membranes moist, no nasal congestion, no scleral icterus. NECK: No stridor, no adenopathy, no meningismus, trachea is midline. LUNGS: Clear to auscultation bilaterally, no wheeze, no rhonchi, breath sounds equal. HEART: Without murmurs gallops or rubs, regular rate and rhythm. ABDOMEN: Soft, mild tenderness in lower pelvis bilaterally, bowel sounds positive, no hernias, no peritonitis. EXTREMITIES: No cyanosis or edema, full range of motion of all the joints without pain or difficulty, no signs for acute trauma. NEUROLOGIC: Oriented x 3, no acute motor or sensory deficits, no focal weakness. SKIN: No rash, no jaundice, no diaphoresis. Medical Decision & Procedures Laboratory Results Test 04/16/17 18:33 Urine Test NEG (NEG) Laboratory results reviewed by me. Urine dip: negative for blood, infection, and . Medications Administered Medications (Trade) Dose Ordered Sig/Bret Route Start Time Stop Time Status Last Admin Dose Admin Ceftriaxone Sodium (Rocephin Im) 500 mg NOW ONCE IM 04/16/17 18:30 04/16/17 18:31 DC 04/16/17 18:45 500 MG Doxycycline Hyclate (Vibramycin Cap) 100 mg NOW STAT PO 04/16/17 18:16 04/16/17 18:19 DC 04/16/17 18:44 100 MG ED Course 181: The patient was evaluated in room A3. A complete history and physical exam was performed. 1815: Vibramycin Cap 100 mg PO. 1829: Rocephin Im 500 mg IM. 1844: Reevaluated the patient. Discussed results and discharge instructions: She verbalized understanding and agreement. The patient is ready for discharge. Medical Decision Differential diagnosis includes but is not limited to: STD, UTI, . The patient presents after being told that she has a positive chlamydia test. She was here a few days ago for pelvic pain and diagnosed with an ovarian cyst, vaginal cultures were obtained at that time. The chlamydia testing has since returned positive and she was called today to return to the ER for treatment. The patient has not had vaginal discharge or fever, no vomiting. She complains of some lower pelvic pain and some lower back pain. She has also had generalized all over body pain at times. The patient is being treated for Chlamydia with doxycycline. She was given 1 dose here orally. The doxycycline course will be twice a day for 2 weeks. She did receive a dose of IM ceftriaxone for the possibility of gonorrhea infection. If worsening, she can return. She will talk with her sexual partners about the positive testing. Medication Reconcilliation Current Medication List: was personally reviewed by me Blood Pressure Screening Patient's blood pressure: Normal blood pressure Impression Primary Impression: STD (female) Scribe Attestation The scribe's documentation has been prepared under my direction and personally reviewed by me in its entirety. I confirm that the note above accurately reflects all work, treatment, procedures, and medical decision making performed by me. Departure Information Dispostion Home / Self-Care Prescriptions Doxycycline Hyclate (VIBRAMYCIN) 100 Mg Cap 100 MG PO BID for 14 Days, #28 CAP Prov: Prashanth Zarate M.D. 04/16/17 Referrals Sherice Cross D.OMartin (PCP) Forms HOME CARE DOCUMENTATION FORM, IMPORTANT VISIT INFORMATION, WORK / SCHOOL INSTRUCTIONS Patient Instructions My [facility] Additional Instructions doxycycline 2x per day for 2 weeks motrin and or tylenol for pain talk to all your sexual partners so they can be treated/testing return for fever, vomiting or worsening symptoms
[2017-04-16] MEDS ORDERED: CEFTRIAXONE SOD 350MG/ML 1 GM VIAL IM ONE (18:30)
[2017-04-16 19:00] VITALS: BP 117/72; PULSE 72; O2SAT 95
== END 2017-04-16 19:11 | disposition home or self-care (01) ==
LOC: C.EDB 16:35 → C.EDA 19:11
DX: A74.9 Chlamydial infection, unspecified (principal); F31.9 Bipolar disorder, unspecified; F32.9 Major depressive disorder, single episode, unspecified; K25.9 Gastric ulcer, unspecified as acute or chronic, without hemorrhage or perforation; Z87.442 Personal history of urinary calculi; Z80.9 Family history of malignant neoplasm, unspecified; Z83.79 Family history of other diseases of the digestive system; Z82.49 Family history of ischemic heart disease and other diseases of the circulatory system; F17.210 Nicotine dependence, cigarettes, uncomplicated; F12.90 Cannabis use, unspecified, uncomplicated; Z79.3 Long term (current) use of hormonal contraceptives; Z79.899 Other long term (current) drug therapy

== ENCOUNTER 2017-04-18 08:33 | Emergency (ER) | payer OTHER ==
[~2017-04-18] VITALS: Ht 152.4 cm; Wt 49.6 kg
[~2017-04-18 08:33] MED LIST changes: +DOXY100C PO
[2017-04-18 08:36] VITALS: TEMP 36.8; Ht 152.4 cm; Wt 49.6 kg
--- NOTE | 2017-04-18 10:13 | DIAGNOSTIC IMAGING REPORT ---
MANDIBLE MIN 4 VIEWS ROUTINE CLINICAL HISTORY: Left jaw pain. No known trauma. COMPARISON STUDY: No previous studies for comparison. FINDINGS: Alignment of the temporomandibular joints appears anatomic. No significant osseous abnormality of the mandible was identified by radiography. Specifically, no fracture or suspicious osseous lesion is present. IMPRESSION: Anatomic alignment of the temporomandibular joints. No significant abnormality of the mandible identified by radiography. Electronically signed by: Blake Francois M.D. 04/18/2017 10:12 AM Dictated Date/Time: 04/18/2017 10:09 AM
[2017-04-18 10:26] VITALS: BP 94/52; PULSE 68; O2SAT 98
[2017-04-18] MEDS ORDERED: PRED20TA2 PO (10:28)
--- NOTE | 2017-04-19 06:22 | EMERGENCY ROOM VISIT NOTE ---
ED Visit Note First contact with patient: 09:12 Chief Complaint: The left side of my jaw feels tight. History of Present Illness: Ms. Block is a 27-year-old white female who ambulates into the ED complaining of left TMJ pain. Historically patient reports she has had a previous dislocation of her mandible without any complications. Patient reports for the last 3 days she has had been having increasing pain in the left TMJ area. She describes her pain initially as an ache and now is becoming slightly sharp. She reports upon waking this morning she opened her mouth and felt a popping sensation in her pain has been increased. Currently she rates her discomfort 8/10. Her pain is nonradiating. Her pain worsens with chewing. She has not identified any alleviating factors related to the pain. She has not taken any medications for pain prior to arrival at the hospital. She denies any associated symptoms including fevers, chills, sweats, facial swelling, recent dental work, recent dental trauma, hearing changes, ear drainage, sore throat, recent head trauma, neck/back pain. Review of Systems: As noted above in history of present illness. 5 body systems were reviewed and found to be negative as noted above. Past Medical History: Bronchitis: (1) Acute gastric ulcer (2) Bipolar disorder (3) Bronchitis (4) Clostridium difficile colitis (5) Depression (6) H/O gastric ulcer (7) H/o marijuana abuse (8) H/o tobacco abuse (9) Kidney stones Surgical Problems: (1) H/O wisdom tooth extraction (2) S/P ear surgery Current Medications: Medications Dose Route/Sig Max Daily Dose Days Date Category Dose Instructions Vibramycin (Doxycycline Hyclate) 100 Mg Cap 100 Mg PO BID 14 04/16/17 Rx Flagyl (Metronidazole) 500 Mg Tab 500 Mg PO BID 7 04/13/17 Rx Advil (Ibuprofen) 200 Mg Tab 600 Mg PO DAILY PRN 04/12/17 Reported Control Pills (Miscellaneous) Tab 1 Tab PO DAILY 04/12/17 Reported Citalopram Hydrobromide (Citalopram) 20 Mg Tab 20 Mg PO DAILY 07/22/16 Reported Allergies to Medications: Amoxicillin. Social History: Patient is currently employed; she feels safe in her home environment; she admits to tobacco use and denies alcohol use. Physical Examination: Vital Signs: Date Time Temp Pulse Resp B/P (MAP) Pulse Ox O2 Delivery O2 Flow Rate FiO2 04/18/17 10:26 68 18 94/52 98 Room Air 04/18/17 08:36 36.8 96 18 116/75 99 GENERAL: 27-year-old female in mild distress due to pain, nontoxic-appearing, afebrile and hemodynamically stable. NEUROLOGICAL: Awake, alert and oriented to person, place and time. Answering questions appropriately and following commands. Normal gait. Good hand eye coordination. SKIN: Warm, dry and pink. No facial swelling or erythema. No external trauma noted. HEENT: Atraumatic and normocephalic. No tenderness or erythema over the frontal or maxillary sinuses. External ears are nontender. Auditory canals are pink and patent. Tympanic membranes are pearly sánchez with normal light reflex. Mild tenderness over the TMJ area. No popping or grinding with jaw movements. No local lymphadenopathy. No tenderness or erythema over the mastoid processes. No malocclusion. Airway is patent. Oral cavity is moist and pink. No obvious dental injury or decay. No tenderness over the teeth. ED Course: Patient is assessed as noted above. Patient's medication list was reviewed. Mandible X-Ray: Was reviewed by myself and read by the radiologist showing anatomical alignment of both TMJ joints with no abnormalities identified. Patient was educated about today's findings and instructed on her treatment plan ; she verbalized understanding and agreement with this plan. Clinical Impression: Left temporomandibular joint pain. Decision-Making: Initially my differential diagnosis I considered otitis externa , otitis interna, dental abscess, perforated tympanic membrane, TMJ dislocation/ subluxation, degenerative changes, mastoiditis and other causes. Disposition: Patient discharged home in stable condition; prior to departure she was reassessed and subjectively reported she was feeling better and rated her discomfort 4/10. Plan: Patient was encouraged to alternate ibuprofen and acetaminophen every 3 hours as needed for pain. Patient was encouraged use ice on the area for pain. Patient was prescribed a short dose of prednisone 40 mg once a day for 4 days. Patient was encouraged to use a liquid or mechanical soft diet until resolution of discomfort. Patient was encouraged to follow-up with oral surgery if no better after steroid use. Patient was encouraged return ED for worsening pain, facial swelling, fevers, hearing changes, severe headaches, vomiting or any new/concerning symptoms.
== END 2017-04-18 10:47 | disposition home or self-care (01) ==
LOC: C.EDB 08:35
DX: M26.622 Arthralgia of left temporomandibular joint (principal); F31.9 Bipolar disorder, unspecified; F17.200 Nicotine dependence, unspecified, uncomplicated; Z86.19 Personal history of other infectious and parasitic diseases; Z87.11 Personal history of peptic ulcer disease; Z87.442 Personal history of urinary calculi; Z98.890 Other specified postprocedural states; Z88.1 Allergy status to other antibiotic agents

== ENCOUNTER 2017-04-21 19:49 | Emergency (ER) | payer SELFPAY ==
[~2017-04-21] VITALS: Ht 152.4 cm; Wt 53.3 kg
[~2017-04-21 19:49] MED LIST changes: +PRED20TA2 PO
[2017-04-21 19:51] VITALS: TEMP 36.3; Ht 152.4 cm; Wt 53.3 kg
[2017-04-21] MEDS ORDERED: ALUMINUM/MAGNESIUM SUSP 30 ML UDC PO STA (20:02)
[2017-04-21] MEDS ORDERED: PANTOprazole SOD 40 MG TAB PO STA (20:02)
[2017-04-21] MEDS ORDERED: LIDOCAINE HCL 2% VISC SOLN 20 ML UDC PO STA (20:02)
[2017-04-21] MEDS ORDERED: MTR500 PO (20:19)
--- NOTE | 2017-04-21 20:27 | EMERGENCY ROOM VISIT NOTE ---
History Report prepared by Freddy: Jabari Metz Under the Supervision of: Dr. Kaylee Pablo M.D. First contact with patient: 19:56 Chief Complaint: BACK PAIN Stated Complaint: BACK PAIN History of Present Illness The patient is a 27 year old female who presents to the Emergency Room with complaints of constant abdominal pain that started a week ago. She rates her pain as a 10/10 in severity. The patient states that the pain is radiating to her back and chest. She states that the pain has been causing her to become short of breath and nauseous. The patient admits that she has been taking 1200- 2000 mg of Ibuprofen a day to help alleviate her symptoms. She states that she has been in the ED three times this week, but admits to normal lab results. The patient states that she had a ruptured ovarian cyst and infection recently. She states that following her visit to her doctor for her cyst, she got a call telling her she has PID and chlamydia. She reports that she was given Doxycycline and admits that she has been taking it. The patient also admits to a history of TMJ, which she takes a steroid for. She states that she takes Celexa, Flagyl, Prilosec, and Doxycycline. The patient reports that she had two bowel movements today, but admits they were soft and it was "hard to go". She states that she urinated before leaving for the ED and the urine was clear, but admits it is now dark orange. The patient denies dysuria, a possible , and any other medical problems. Source of History: patient Onset: a week ago Position: abdomen Symptom Intensity: 10/10 Timing: constant Modifying Factors (Relieving): ibuprofen Associated Symptoms: + SOB, + nausea, No urinary symptoms Review of Systems See HPI for pertinent positives & negatives. A total of 10 systems reviewed and were otherwise negative. Past Medical & Surgical Medical Problems: (1) Acute gastric ulcer (2) Bipolar disorder (3) Bronchitis (4) Clostridium difficile colitis (5) Depression (6) H/O gastric ulcer (7) H/o marijuana abuse (8) H/o tobacco abuse (9) Kidney stones Surgical Problems: (1) H/O wisdom tooth extraction (2) S/P ear surgery Family History Cancer FH: gallbladder disease MOTHER SISTER Heart disease Social History Smoking Status: Current Every Day Smoker Alcohol Use: occasionally Drug Use: marijuana Marital Status: in relationship Housing Status: lives with family Occupation Status: employed Current/Historical Medications Scheduled Control Pills ( Control Pills), 1 TAB PO DAILY Citalopram (Citalopram Hydrobromide), 20 MG PO DAILY Doxycycline Hyclate (Vibramycin), 100 MG PO BID Famotidine (Pepcid), 20 MG PO BID Metronidazole (Metronidazole), 500 MG PO UD Pantoprazole (Protonix), 40 MG PO DAILY Prednisone (Prednisone Tab), 3 TAB PO DAILY Scheduled PRN Ibuprofen (Advil), 600 MG PO DAILY PRN for Pain Allergies Coded Allergies: Amoxicillin (Unverified Allergy, Unknown, ITCHY, REDNESS, 04/18/17) Physical Exam Vital Signs Date Time Temp Pulse Resp B/P (MAP) Pulse Ox O2 Delivery O2 Flow Rate FiO2 04/21/17 21:39 59 20 111/64 98 04/21/17 19:51 36.3 66 20 102/62 98 Room Air Physical Exam Vital signs reviewed. General: Well-appearing 27 year old female, in no significant distress. HEENT: No scleral icterus, PERRLA, neck supple. Atraumatic. Cardiovascular: Regular rate and rhythm, no extra sounds. Pulmonary: Clear to auscultation bilaterally, normal work of breathing. Abdomen: Soft, nontender, nondistended, positive bowel sounds. Musculoskeletal: Atraumatic, no peripheral edema. No CVA tenderness. Neurologic: Patient awake alert and oriented x 3 Skin: Warm, dry, no rash Medical Decision & Procedures ER Provider Diagnostic Interpretation: Radiology results as stated below per my review and radiologist interpretation: KUB HISTORY: Generalized abdominal pain. COMPARISON: Chest and abdominal series 08/27/2015. FINDINGS: The bowel gas pattern is unremarkable. There are no dilated loops of small bowel to suggest an obstruction. No renal calculi. No ureteral calculi. Calcifications in the deep pelvis likely represent phleboliths. No pneumoperitoneum or pneumatosis. IMPRESSION: No renal or ureteral stones. Electronically signed by: Aiden Garg M.D. 04/21/2017 9:16 PM Dictated Date/Time: 04/21/2017 9:14 PM Laboratory Results Test 04/21/17 20:10 Urine Color DK YELLOW Urine Appearance CLEAR (CLEAR) Urine pH 6.0 (4.5-7.5) Urine Specific [place] 1.028 (1.000-1.030) Urine Protein NEG (NEG) Urine Glucose (UA) NEG (NEG) Urine Ketones TRACE (NEG) Urine Occult Blood 2+ (NEG) Urine Nitrite NEG (NEG) Urine Bilirubin NEG (NEG) Urine Urobilinogen NEG (NEG) Urine Leukocyte Esterase TRACE (NEG) Urine WBC (Auto) 1-5 /hpf (0-5) Urine RBC (Auto) 10-30 /hpf (0-4) Urine Hyaline Casts (Auto) 5-10 /lpf (0-5) Urine Epithelial Cells (Auto) >30 /lpf (0-5) Urine Bacteria (Auto) NEG (NEG) Urine Crystals URIC ACID (NONE PRSENT) Urine Mucus PRESENT (NONE PRSENT) Urine Test NEG (NEG) Laboratory results per my review. Medications Administered Medications (Trade) Dose Ordered Sig/Bret Route Start Time Stop Time Status Last Admin Dose Admin Pantoprazole Sodium (Protonix Tab) 40 mg NOW STAT PO 04/21/17 20:02 04/21/17 20:03 DC 04/21/17 20:02 40 MG Lidocaine HCl (Viscous Lidocaine 2% Soln) 10 ml NOW STAT PO 04/21/17 20:02 04/21/17 20:03 DC 04/21/17 20:02 10 ML Al Hydroxide/Mg Hydroxide (Maalox Susp) 30 ml NOW STAT PO 04/21/17 20:02 04/21/17 20:03 DC 04/21/17 20:02 30 ML ED Course 2000: Past medical records reviewed. The patient was evaluated in room B02. A complete history and physical examination was performed. 2001: Ordered Maalox Susp 30 ml PO, Lidocaine HCl 10 ml PO, Protonix Tab 40 mg PO. 2118: Upon reevaluation, the patient appeared to have improvement of her symptoms. I discussed findings with her. The patient verbalized agreement of the treatment plan. She was discharged home. Medical Decision Differential diagnosis: Etiologies such as appendicitis, diverticulitis, PUD, biliary pathology, UTI, pancreatitis, obstruction, mesenteric ischemia, aortic pathology, infections, inflammatory bowel disease, renal colic, as well as others were entertained. This patient was evaluated and appeared to be in no significant distress. Physical examination reveals no specific findings. Patient does seem to have some mild abdominal bloating. KUB was performed and is largely negative. UA is significant for microscopic blood and epithelial cells. This is likely menstrual contamination. The patient has been on prednisone and large amounts of ibuprofen recently for TMJ pain. She was advised to stop both medications and use Tylenol. I suspect this is early gastric ulcer versus gastritis. She is placed on Protonix, given 1 dose in the ER. She was also given a GI cocktail. She was given a prescription for Protonix 40 mg daily as well as Pepcid 20 mg twice a day as needed. She'll follow-up with her physician this week for reevaluation and return to the ER for worsening of symptoms or any medical concerns. Medication Reconcilliation Current Medication List: was personally reviewed by me Blood Pressure Screening Patient's blood pressure: Normal blood pressure Impression Primary Impression: Gastritis Scribe Attestation The scribe's documentation has been prepared under my direction and personally reviewed by me in its entirety. I confirm that the note above accurately reflects all work, treatment, procedures, and medical decision making performed by me. Departure Information Dispostion Home / Self-Care Prescriptions Famotidine (PEPCID) 20 Mg Tab 20 MG PO BID, #60 TAB Prov: Kaylee Pablo M.D. 04/21/17 Pantoprazole (Protonix) 40 Mg Tab 40 MG PO DAILY, #30 TAB Prov: Kaylee Pablo M.D. 04/21/17 Referrals Sherice Cross D.OMartin (PCP) Forms HOME CARE DOCUMENTATION FORM, IMPORTANT VISIT INFORMATION Patient Instructions My [facility] Additional Instructions Diagnosis: Gastritis Protonix 40 mg daily. Pepcid 20 mg twice daily as needed for additional symptoms. Stop the prednisone and ibuprofen. Tylenol 650 mg every 6 hours as needed for pain. Please maintain a bland diet. Avoid alcohol, coffee, soda and nicotine. Follow-up with your physician this week for reevaluation. Return to the emergency department for worsening of symptoms or any medical concerns.
[2017-04-21 20:39] LABS: URINE APPEARANCE CLEAR (CLEAR); URINE BILIRUBIN NEG (NEG); URINE COLOR DK YELLOW; URINE EPITHELIAL CELL AUTO >30 /lpf (0-5); URINE NITRITE NEG (NEG); URINE SPECIFIC GRAVITY 1.028 (1.000-1.030); UROBILINOGEN NEG (NEG); ZZUR CULT IF INDIC CLEAN CATCH NO
[2017-04-21 21:00] LABS: MANUAL MICROSCOPIC REQUIRED? NO; REVIEW REQ? YES
[2017-04-21 21:13] LABS: URINE MUCUS PRESENT (NONE PRSENT)
--- NOTE | 2017-04-21 21:17 | DIAGNOSTIC IMAGING REPORT ---
KUB HISTORY: Generalized abdominal pain. COMPARISON: Chest and abdominal series 08/27/2015. FINDINGS: The bowel gas pattern is unremarkable. There are no dilated loops of small bowel to suggest an obstruction. No renal calculi. No ureteral calculi. Calcifications in the deep pelvis likely represent phleboliths. No pneumoperitoneum or pneumatosis. IMPRESSION: No renal or ureteral stones. Electronically signed by: Aiden Garg M.D. 04/21/2017 9:16 PM Dictated Date/Time: 04/21/2017 9:14 PM
[2017-04-21] MEDS ORDERED: FAMO20TA9 PO (21:29)
[2017-04-21] MEDS ORDERED: PANT40TA PO (21:29)
[2017-04-21 21:39] VITALS: BP 111/64; PULSE 59; O2SAT 98
== END 2017-04-21 21:40 | disposition home or self-care (01) ==
LOC: C.EDB 19:50
DX: K29.70 Gastritis, unspecified, without bleeding (principal); F17.200 Nicotine dependence, unspecified, uncomplicated; Z87.442 Personal history of urinary calculi; Z98.818 Other dental procedure status; F32.9 Major depressive disorder, single episode, unspecified; Z98.890 Other specified postprocedural states

== ENCOUNTER 2017-05-25 07:29 | Emergency (ER) | payer OTHER ==
[~2017-05-25] VITALS: Ht 152.4 cm; Wt 48.2 kg
[~2017-05-25 07:29] MED LIST changes: -DOXY100C PO; -METR-163 PO; +MTR500 PO; +PANT40TA PO
[2017-05-25 07:32] VITALS: TEMP 36.6; Ht 152.4 cm; Wt 48.2 kg
[2017-05-25 08:19] LABS: URINE APPEARANCE CLEAR (CLEAR); URINE BILIRUBIN NEG (NEG); URINE COLOR YELLOW; URINE EPITHELIAL CELL AUTO >30 /lpf (0-5); URINE NITRITE NEG (NEG); URINE SPECIFIC GRAVITY 1.015 (1.000-1.030); UROBILINOGEN NEG (NEG)
[2017-05-25 08:20] LABS: MANUAL MICROSCOPIC REQUIRED? NO; REVIEW REQ? NO
[2017-05-25 08:34] LABS: BASO % 0.3 %; BASO ABS # 0.03 K/uL (0-0.2); COMPLETE YES; EOS % 1.5 %; HEMATOCRIT 42.7 % (37-47); IG% 0.2 %; LYMPH ABS # 2.11 K/uL (1.2-3.4); MEAN CELL VOLUME 88.6 fL (80-100); MEAN CORPUSCULAR HEMOGLOBIN 31.5 pg (25-34); MEAN CORPUSCULAR HGB CONC 35.6 g/dl (32-36); MEAN PLATELET VOLUME 9.6 fL (7.4-10.4); MONO % 4.3 %; NEUT % 72.7 %; PLATELET COUNT 312 K/uL (130-400); RED BLOOD COUNT 4.82 M/uL (4.2-5.4); WHITE BLOOD COUNT 10.05 K/uL (4.8-10.8)
[2017-05-25 08:50] LABS: BUN/CREATININE RATIO 18.7 (10-20); CALCIUM 8.7 mg/dl (8.5-10.1); CREATININE 0.85 mg/dl (0.60-1.20)
--- NOTE | 2017-05-25 09:11 | DIAGNOSTIC IMAGING REPORT ---
PELVIC COMPLETE NON OB HISTORY: 27 years-old Female L abd pain acute left-sided abdominal pain COMPARISON: Pelvic ultrasound 04/12/2017 TECHNIQUE: Multiple real-time sonographic images of the deep pelvic structures were obtained transabdominally assessing grayscale appearance, color and spectral flow. FINDINGS: The anteflexed uterus measures 7.9 x 4.3 x 4.6 cm. Endometrium measures 0.5 cm. Right ovary measures 2.6 x 2.5 x 2.0 cm and is unremarkable. Arterial inflow and venous outflow documented within the right ovary. The left ovary measures 2.9 x 2.5 x 2.5 cm. Arterial inflow and venous outflow documented within the left ovary. Complex cystic structure left ovary is seen, 1.5 x 1.4 x 1.7 cm, previously measuring 3.1 x 3.3 x 2.9 cm. No significant free pelvic fluid. IMPRESSION: 1. Mildly complex cystic structure of the left ovary measuring up to 1.7 cm suggests involuting hemorrhagic cyst, previously measuring up to 3.3 cm. 2. No evidence of ovarian torsion. 3. Normal sonographic appearance of the uterus and endometrium The above report was generated using voice recognition software. It may contain grammatical, syntax or spelling errors. Electronically signed by: Fred Hidalgo M.D. 05/25/2017 9:10 AM Dictated Date/Time: 05/25/2017 9:06 AM
[2017-05-25 09:57] VITALS: BP 110/64; PULSE 88; O2SAT 99
--- NOTE | 2017-05-27 14:50 | EMERGENCY ROOM VISIT NOTE ---
History First contact with patient: 07:42 Chief Complaint: OTHER COMPLAINT Stated Complaint: POSSIBLE MISCARRIAGE, LEFT SHOULDER/ARM PAIN History of Present Illness The patient is a 27 year old white female who presents to the Emergency Room with multiple complaints. Her first complaint is of right shoulder pain that has an ongoing for several months. No specific injury. Symptoms seemed to start over summer. They have exacerbated with time. 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 She notes pain and popping with motion of her shoulder. Right- hand dominant. No treatment. She notes that radiates into the lower arm at times. Pain is intermittent. Worse with use. She points to the anterior posterior aspect of the glenohumeral joint as the area of discomfort. She denies any loss of motion. She does note some weakness. She also complains of 6-8 weeks of abdominal pain. She was seen here in late March and diagnosed with a left ovarian cyst. She was also diagnosed with chlamydia at that time. She has a follow-up appointment in 2 days with her PROGRAM PRODUCTION SPECIALIST. She currently is in day 4 of her menstrual period. She states last night she had a larger bloody discharge and became concerned. She states she has had clots before and this was different than previous clots that she has seen. She is wondering if she had a miscarriage. She is on oral contraceptives and has taken them regularly. She is also on antibiotics for Chlamydia and is concerned that the antibiotics were interfering with the oral contraceptive. She had a normal menstrual cycle last month. He does have nausea and has had some chills. No fevers, sweats, vomiting, or diarrhea. Review of Systems REVIEW OF SYSTEM: HEENT: No dizziness, visual problems, hearing loss, or tinnitus. There is no difficulty swallowing and no oral lesions are present. PULMONARY: No cough, shortness of breath, sputum production or hemoptysis. CARDIOVASCULAR: No chest pain, palpitations, shortness of breath or peripheral edema. GASTROINTESTINAL: No diarrhea, constipation, nausea, vomiting, or abdominal pain. GENITOURINARY: No dysuria, frequency, urgency or nocturia. NEUROLOGIC: No weakness, muscle tenderness, epilepsy or history of neurological problems. MUSCULOSKELETAL: No history of joint tenderness/swelling. No history of arthritis or arthralgias. SKIN: No rashes or lesions. PSYCHIATRIC: Positive history of anxiety and bipolar disorder. ENDOCRINE: No history of diabetes, thyroid disorders, or abnormal hair growth. Past Medical/Surgical History Medical Problems: (1) Acute gastric ulcer (2) Bipolar disorder (3) Bronchitis (4) Clostridium difficile colitis (5) Depression (6) H/O gastric ulcer (7) H/o marijuana abuse (8) H/o tobacco abuse (9) Kidney stones Surgical Problems: (1) H/O wisdom tooth extraction (2) S/P ear surgery Family History Cancer FH: gallbladder disease MOTHER SISTER Heart disease Social History Smoking Status: Current Every Day Smoker Smokeless Tobacco Use: No Alcohol Use: occasionally Drug Use: marijuana Marital Status: in relationship Housing Status: lives with family Occupation Status: employed Current/Historical Medications Scheduled Control Pills ( Control Pills), 1 TAB PO DAILY Citalopram (Citalopram Hydrobromide), 20 MG PO DAILY Scheduled PRN Ibuprofen (Advil), 600 MG PO DAILY PRN for Pain Physical Exam Vital Signs Date Time Temp Pulse Resp B/P (MAP) Pulse Ox O2 Delivery O2 Flow Rate FiO2 05/25/17 09:57 88 18 110/64 99 05/25/17 08:56 78 18 101/61 100 Room Air 05/25/17 07:32 36.6 88 18 119/68 98 Room Air Physical Exam Gen.: Well-developed, well-nourished, young white female, in no acute distress. Petite. Alert and oriented. Sitting on a bed. Skin:Warm and dry with good turgor. No rashes or lesions. No ecchymosis or erythema. The patient is not diaphoretic. No abrasions. HEENT: Normocephalic atraumatic. Eyes PERRLA, EOMI. No conjunctiva or scleral injection. Ears TMs intact bilaterally with good light reflexes. No erythema or bulging. No hemotympanum. Canals are patent. Nares patent bilaterally without turbinate enlargement. No significant drainage. No epistaxis. Oropharynx without erythema or exudate. Uvula midline, oral mucosa moist. No lesions present. Heart: Heart RRR. No MGR. Peripheral pulses are 2+. Lungs: Lungs are clear to auscultation. No crackles rhonchi or wheezing. Good air movement. The patient is able to take a deep breath. Abdomen: Abdomen was inspected, auscultated, and palpated. Bowel sounds present x 4. Soft, nontender to palpation. No hepato-splenomegaly. No masses noted. No rebound. No pain over McBurney's point. No CVA tenderness. No suprapubic discomfort. Musculoskeletal: Gross motor function of the upper and lower extremities is intact and unremarkable. Medical Decision & Procedures ER Provider Diagnostic Interpretation: Pelvic ultrasound obtained today was read by radiology as positive for a mildly complex cyst of the left ovary measuring 1.7 cm x 3.3 cm. Suggests an involuted hemorrhagic cyst. Laboratory Results 05/25/17 08:10 Red Blood Count 4.82, Mean Corpuscular Volume 88.6, Mean Corpuscular Hemoglobin 31.5, Mean Corpuscular Hemoglobin Concent 35.6, Mean Platelet Volume 9.6, Neutrophils (%) (Auto) 72.7, Lymphocytes (%) (Auto) 21.0, Monocytes (%) (Auto) 4.3, Eosinophils (%) (Auto) 1.5, Basophils (%) (Auto) 0.3, Neutrophils # (Auto) 7.31, Lymphocytes # (Auto) 2.11, Monocytes # (Auto) 0.43, Eosinophils # (Auto) 0.15, Basophils # (Auto) 0.03 05/25/17 08:10 Test 05/25/17 08:09 05/25/17 08:10 Urine Color YELLOW Urine Appearance CLEAR (CLEAR) Urine pH 7.0 (4.5-7.5) Urine Specific [place] 1.015 (1.000-1.030) Urine Protein NEG (NEG) Urine Glucose (UA) NEG (NEG) Urine Ketones NEG (NEG) Urine Occult Blood 2+ (NEG) Urine Nitrite NEG (NEG) Urine Bilirubin NEG (NEG) Urine Urobilinogen NEG (NEG) Urine Leukocyte Esterase NEG (NEG) Urine WBC (Auto) 1-5 /hpf (0-5) Urine RBC (Auto) 0-4 /hpf (0-4) Urine Hyaline Casts (Auto) 0 /lpf (0-5) Urine Epithelial Cells (Auto) >30 /lpf (0-5) Urine Bacteria (Auto) NEG (NEG) Urine Test NEG (NEG) White Blood Count 10.05 K/uL (4.8-10.8) Red Blood Count 4.82 M/uL (4.2-5.4) Hemoglobin 15.2 g/dL (12.0-16.0) Hematocrit 42.7 % (37-47) Mean Corpuscular Volume 88.6 fL (80-100) Mean Corpuscular Hemoglobin 31.5 pg (25-34) Mean Corpuscular Hemoglobin Concent 35.6 g/dl (32-36) Platelet Count 312 K/uL (130-400) Mean Platelet Volume 9.6 fL (7.4-10.4) Neutrophils (%) (Auto) 72.7 % Lymphocytes (%) (Auto) 21.0 % Monocytes (%) (Auto) 4.3 % Eosinophils (%) (Auto) 1.5 % Basophils (%) (Auto) 0.3 % Neutrophils # (Auto) 7.31 K/uL (1.4-6.5) Lymphocytes # (Auto) 2.11 K/uL (1.2-3.4) Monocytes # (Auto) 0.43 K/uL (0.11-0.59) Eosinophils # (Auto) 0.15 K/uL (0-0.5) Basophils # (Auto) 0.03 K/uL (0-0.2) RDW Standard Deviation 45.3 fL (36.4-46.3) RDW Coefficient of Variation 13.7 % (11.5-14.5) Immature Granulocyte % (Auto) 0.2 % Immature Granulocyte # (Auto) 0.02 K/uL (0.00-0.02) Anion Gap 7.0 mmol/L (3-11) Est Creatinine Clear Calc Drug Dose 70.8 ml/min Estimated GFR () 108.1 Estimated GFR (Non- 93.2 BUN/Creatinine Ratio 18.7 (10-20) Calcium Level 8.7 mg/dl (8.5-10.1) CBC and PRP were obtained. They are unremarkable. Urine obtained today was negative. UA obtained today shows 2+ blood and epithelials. ED Course Patient was educated regarding today's findings. Conservative care measures were discussed. IV was established. Labs were obtained. UA and urine were also obtained. Ultrasound of the abdomen and pelvis was also obtained. Her previous ovarian cyst on the left side remains. She was reassured that I find no evidence for . The clot that she saw on her menstrual pad was likely just that, a large clot. She was reassured that it was not a miscarriage or an ovarian cyst that fell out. She has an appointment to see her PROGRAM PRODUCTION SPECIALIST in 2 days. I did recommend that she keep that appointment for follow-up. Return to the ED for any other concerns. Care plan was discussed with Dr. Godoy. Medical Decision Possibility of miscarriage, ectopic , ovarian cyst, heavy menses, and infection were considered. [place] Drug Monitoring Program Search Results: no issues identified Medication Reconcilliation Current Medication List: was personally reviewed by me Blood Pressure Screening Patient's blood pressure: Normal blood pressure Impression Primary Impression: Heavy menses Departure Information Referrals Sherice Cross D.O. (PCP) Patient Instructions My [facility] Problem Qualifiers Primary Impression: Heavy menses Menorrahagia type: with regular cycle Qualified Codes: N92.0 - Excessive and frequent menstruation with regular cycle
== END 2017-05-25 09:58 | disposition home or self-care (01) ==
LOC: C.EDB 07:30 → C.EDA 09:58
DX: N92.0 Excessive and frequent menstruation with regular cycle (principal); F31.9 Bipolar disorder, unspecified; F32.9 Major depressive disorder, single episode, unspecified; Z87.442 Personal history of urinary calculi; Z80.9 Family history of malignant neoplasm, unspecified; Z82.49 Family history of ischemic heart disease and other diseases of the circulatory system; F17.210 Nicotine dependence, cigarettes, uncomplicated; Z79.3 Long term (current) use of hormonal contraceptives

== ENCOUNTER 2019-11-07 05:00 | Observation (INO) ==
[2019-11-07] MEDS ORDERED: SODIUM CHLORIDE 0.9% 1000ML 1,000 ML IV ONE ×2 (05:12)
[2019-11-07] MEDS ORDERED: ONDANSETRON INJ 2 MG/ML 2 ML VIAL IV STA (05:12)
--- NOTE | 2019-11-07 05:23 | Emergency Department Note ---
ED Provider Note Name: SOLITARIO SMITH Age: 29 Sex: F Arrives Via: Walk-In Informant: Patient ED Provider: Tu Gutiérrez MD Chief Complaint: Abdominal Cramping in Impression: Abdominal Pain Affecting Nausea, Vomiting, and Diarrhea Acute Dehydration Leukocytosis Medical Decision Makin yr old female who is 35 weeks initially evaluated in L&D for abdominal cramping, back cramping, and nausea, vomiting, diarrhea. [place] to not be in labor thus sent to ED for further evaluation. Patient vomiting and dehydrated by appearance and evaluation. Abdomen with mild TTP without peritoni tis. Labs ordered reveal significant Leukocytosis. With abdominal pain, diarrhea and her history would suspect this repeat of her terminal ileitis/Crohn's that she previously has been diagnosed with. HR improved, patient is afebrile and abdominal exam relatively benign, thus will hold off on blood cultures/lactate and given she is 35 weeks would prefer to avoid CT imaging. UA is not very concerning for UTI and suspect contaminant but will defer to primary service regarding if abx or await culture. Prior Medical Record and Triage/Nursing Notes reviewed by Me Differentials:labor, UTI, Gastroenteritis, food borne illness, infections, appendicitis, diverticulitis, inflammatory bowel disease, obstruction, GI bleed, biliary pathology, volvulus, as well as other pathologies. Vital Signs: reviewed and remarkable for tachy Interventions: saline lock, nss bolus 2 L IV, nss infusion, zofran 4mg IV Labs:Reviewed and remarkable for elevated wbc Imaging:none Consults:Dr Walker OB requests I consult hospitalist for admission, I discussed with hospitalist Dr Kim who notes he will have his team discuss further with Dr Walker. Plan: Disposition:Hospitalization. Referred to: PCP Condition: Good Blood pressure:Normal.No Referral necessary History of Present Illness:29 / F who is 35 weeks with 3rd arrives for evaluation of abdominal pain. Patient notes 24 hours of band like pain across abdomen on each side. Comes in waves. Cramping in nature. Radiates to back. Notes this started yesterday day morning and gradually worsened throughout the day. This evening around 6-7 hours ago she developed nausea, vomiting and diarrhea. Notes many episodes of vomiting. Nothing makes better nor worse. States she ate without difficulty during dinner despite abdominal cramps. Denies fevers, chills, runny nose, shortness of breath, cough, difficulty breathing, rashes, headache, neck pain, leg swelling (beyond normal), nor other symptoms. Admits lower central chest discomfort over last few months which she relates to expanding abdomen, and pain is not left chest nor tightness throughout. She denies vaginal bleeding, discharge, nor pelvic discomfort. Patient notes that today's symptoms do not seem similar to previous contractions. Notes diarrhea has resolved and she does not feel she needs to have further. She has history of Cdiff after delivery of daughter 4 years ago. She has had no recent antibiotics. Patient with diagnosis Crohn's last year after periodic waves of abdominal cramps over last few years, including admission 05/2018 with diagnosis Terminal Ileitis and leukocytosis. Patient was initially seen by OB floor where she was felt to not be in labor and transferred to ED for further evaluation. Patient without treatment on OB floor. Patient notes some abdominal pains in September which resolved. ROS: See above HPI for pertinent positives & negatives. A total of 10 systems reviewed and were otherwise negative. 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 Dehydrated appearing EYES: No scleral icterus, unremarkable pupils. ENT: Mucous membranes dry, no nasal congestion. NECK: No masses appreciated, nomeningismus, trachea is midline. RESPIRATORY: No dyspnea. Clear to auscultation and equal bilaterally. No wheeze, no rhonchi. CARDIOVASCULAR: Tachy.No murmurs, rubs, gallops appreciated. GASTROINTESTINAL: Large distended abdomen consistent with gravid uterus. Mild diffuse TTP without peritonitis. BACK: No midline tenderness, no CVA tenderness EXTREMITIES: Normal motion all extremities, no cyanosis, no edema. NEUROLOGIC: Alert and oriented, no acute motor or sensory deficits, no focal weakness, cranial nerves grossly intact. SKIN: No rash, no jaundice, no diaphoresis. PSYCH: Appropriate GCS: 15 ED Course: Times/Reassessments: Multiple. Feeling much improved with IV fluids/zofran, improvement abdo pain though did have return of pain periodically cramping in nature. 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 Beliefs That Will Affect Care: Spiritual marital status: Single Current Living Situation: Other Current Living Situation Comment: lives with 4yo and s/o on weekends current occupational status: employed Other Information That Helps Us Care for You: No Feels Safe at Home: Yes Smoking Status: Current every day smoker Tobacco Type: cigarettes ; Cigarettes Per Day: 7-8/day ; Do You Dip or Chew Tobacco: No ; Second Hand Exposure: Yes (s/o) ; Tobacco Cessation Education Requested by Patient: No Hx Alcohol Use: No Results & Data Vital Signs Vital Signs - 24 hr 11/07/19 05:04 11/07/19 05:43 11/07/19 06:54 Temperature 36.5 C Temperature Source Oral Pulse Rate 108 H Pulse Rate [Left Brachial] Pulse Rate [Right Finger] 88 80 Pulse Rhythm [Left Brachial] Pulse Strength [Left Brachial] Respiratory Rate 18 18 18 Respiratory Effort / Characteristics Non-Labored Spontaneous Non-Labored Respiratory Depth Normal Normal Respiratory Pattern Blood Pressure 123/80 Blood Pressure [Left Arm] 103/61 110/57 L Blood Pressure Mean 94 Blood Pressure Mean [Left Arm] 75 74 Blood Pressure Position Sitting Blood Pressure Position [Left Arm] Lying Pulse Oximetry 98 99 99 Oxygen Delivery Method Room Air Room Air Room Air Sepsis Recent Fever Within 48 Hours No Sepsis New/Unexplained Change in Mental Status No Sepsis Action Taken by Nursing No Action Required 11/07/19 09:00 11/07/19 09:20 Temperature 36.4 C L Temperature Source Oral Pulse Rate Pulse Rate [Left Brachial] 75 Pulse Rate [Right Finger] 101 H Pulse Rhythm [Left Brachial] Regular Pulse Strength [Left Brachial] Normal Respiratory Rate 18 16 Respiratory Effort / Characteristics Non-Labored Spontaneous Respiratory Depth Normal Respiratory Pattern Regular Blood Pressure Blood Pressure [Left Arm] 101/53 L 110/68 Blood Pressure Mean Blood Pressure Mean [Left Arm] 69 82 Blood Pressure Position Blood Pressure Position [Left Arm] Semi-fowlers Pulse Oximetry 99 98 Oxygen Delivery Method Room Air Room Air Sepsis Recent Fever Within 48 Hours Sepsis New/Unexplained Change in Mental Status Sepsis Action Taken by Nursing Laboratory Data Result diagrams: 11/08/19 05:27 11/08/19 05:27 Lab Results 11/07/19 11/07/19 11/07/19 Range/Units 05:17 05:17 06:13 WBC 26.07 H (4.8-10.8) K/uL RBC 4.09 L (4.2-5.4) M/uL Hgb 13.6 (12.0-16.0) g/dL Hct 38.9 (37-47) % MCV 95.1 (80-100) fL MCH 33.3 (25-34) pg MCHC 35.0 (32-36) g/dL RDW Std Deviation 46.8 H (36.4-46.3) fL RDW Coeff of Cheli 13.4 (11.5-14.5) % Plt Count 281 (130-400) K/uL MPV 10.1 (7.4-10.4) fL Immature Gran % (Auto) 1.7 % Neut % (Auto) 84.8 % Lymph % (Auto) 7.9 % [place] % (Auto) 5.3 % Eos % (Auto) 0.2 % Baso % (Auto) 0.1 % Immature Gran # (Auto) 0.45 H (0.00-0.02) K/uL Neut # (Auto) 22.11 H (1.4-6.5) K/uL Lymph # (Auto) 2.05 (1.2-3.4) K/uL [place] # (Auto) 1.39 H (0.11-0.59) K/uL Eos # (Auto) 0.04 (0-0.5) K/uL Baso # (Auto) 0.03 (0-0.2) K/uL Sodium 138 (136-145) mmol/L Potassium 3.8 (3.5-5.1) mmol/L Chloride 108 H (98-107) mmol/L Carbon Dioxide 25 (21-32) mmol/L Anion Gap 5.0 (3-11) BUN 8 (7-18) mg/dl Creatinine 0.65 (0.6-1.2) mg/dl Est Cr Clr Drug Dosing Not Reportable Est GFR ( Amer) 138.1 Est GFR (Non-Af Amer) 119.1 BUN/Creatinine Ratio 12.2 (10-20) Glucose 104 H (70-99) mg/dl Calcium 9.4 (8.5-10.1) mg/dl Magnesium 1.5 L (1.8-2.4) mg/dl Total Bilirubin 0.3 (0.2-1) mg/dl Direct Bilirubin < 0.1 (0-0.2) mg/dl AST 18 (15-37) U/L ALT 16 (12-78) U/L Alkaline Phosphatase 173 H (45-117) U/L Total Protein 7.8 (6.4-8.2) gm/dl Albumin 3.4 (3.4-5.0) gm/dl Lipase 159 (73-393) U/L Urine Color Yellow Urine Appearance Clear (Clear) Urine pH 6.0 (4.5-7.5) Ur Specific [place] 1.022 (1.000-1.030) Urine Protein Trace H (Negative) Urine Glucose (UA) Negative (Negative) Urine Ketones 1+ H (Negative) Urine Blood Negative (Negative) Urine Nitrite Negative (Negative) Urine Bilirubin Negative (Negative) Urine Urobilinogen Negative (Negative) Ur Leukocyte Esterase Negative (Negative) Urine WBC (Auto) 5-10 H (0-5) /hpf Urine RBC (Auto) 5-10 H (0-4) /hpf U Hyaline Cast (Auto) 1-5 (0-5) /lpf U Epithel Cells (Auto) >30 H (0-5) /lpf Urine Bacteria (Auto) 1+ H (Negative) Ur Renal Epithelial Cell Not Reportable Urine Crystals Not Reportable Calcium Oxalate Crystal Present A (None Prsent) Administered Medications Discontinued Medications Sodium Chloride (Nss 1000ml) 1,000 mls @ 999 mls/hr IV .Q1H1M ONE Stop: 11/07/19 06:12 Last Infusion: 11/07/19 06:11 Dose: 0 mls/hr Documented by: [id number] Admin: 11/07/19 05:23 Dose: 999 mls/hr Documented by: [id number] Sodium Chloride (Nss 1000ml) 1,000 mls @ 999 mls/hr IV .Q1H1M ONE Stop: 11/07/19 06:12 Last Infusion: 11/07/19 06:56 Dose: 0 mls/hr Documented by: [id number] Admin: 11/07/19 05:24 Dose: 999 mls/hr Documented by: [id number] Sodium Chloride (Nss 1000ml) 1,000 mls @ 80 mls/hr IV .[id number] RODRICK Stop: 12/07/19 06:59 Last Infusion: 11/07/19 11:42 Dose: 0 mls/hr Documented by: [id number] Admin: 11/07/19 07:16 Dose: 125 mls/hr Documented by: [id number] Lactated Ringer's (Lr) 1,000 mls @ 125 mls/hr IV .Q8H PRN; Protocol PRN Reason: L&D Protocol Stop: 12/07/19 10:40 Last Infusion: 11/08/19 12:10 Dose: 0 mls/hr Documented by: [id number] Infusion: 11/08/19 11:26 Dose: 0 mls/hr Documented by: [id number] Infusion: 11/08/19 06:20 Dose: 125 mls/hr Documented by: [id number] Admin: 11/08/19 04:57 Dose: 125 mls/hr Documented by: [id number] Infusion: 11/08/19 04:48 Dose: 125 mls/hr Documented by: [id number] Infusion: 11/08/19 00:30 Dose: 125 mls/hr Documented by: [id number] Admin: 11/07/19 20:48 Dose: 125 mls/hr Documented by: [id number] Infusion: 11/07/19 20:12 Dose: 125 mls/hr Documented by: [id number] Infusion: 11/07/19 18:24 Dose: 125 mls/hr Documented by: [id number] Infusion: 11/07/19 14:12 Dose: 125 mls/hr Documented by: [id number] Infusion: 11/07/19 12:52 Dose: 125 mls/hr Documented by: [id number] Infusion: 11/07/19 12:22 Dose: 0 mls/hr Documented by: [id number] Admin: 11/07/19 11:42 Dose: 125 mls/hr Documented by: [id number] Ceftriaxone Sodium (Rocephin) 1,000 mg in 50 mls @ 100 mls/hr IV Q24H RODRICK Stop: 11/12/19 11:59 Last Infusion: 11/08/19 11:56 Dose: 0 mls/hr Documented by: [id number] Admin: 11/08/19 11:26 Dose: 100 mls/hr Documented by: [id number] Infusion: 11/07/19 12:52 Dose: 0 mls/hr Documented by: [id number] Admin: 11/07/19 12:22 Dose: 100 mls/hr Documented by: [id number] Magnesium Oxide (Mag-Ox) 400 mg PO BID RODRICK Stop: 12/07/19 10:14 Last Admin: 11/08/19 08:41 Dose: 400 mg Documented by: [id number] Admin: 11/07/19 20:49 Dose: 400 mg Documented by: [id number] Admin: 11/07/19 11:43 Dose: 400 mg Documented by: [id number] Ondansetron HCl (Zofran) 4 mg IV NOW STA Stop: 11/07/19 05:13 Last Admin: 11/07/19 05:24 Dose: 4 mg Documented by: [id number] Discharge Plan Visit Data *Final* Discharge Date/Time: 11/07/19 09:10 Chief Complaint: Vomiting Stated Complaint: N/V,CRAMPING,DIARRHEA,HOT FLASHES,BACK PAIN ED Provider: Tu Gutiérrez Discharge Problem: Abdominal pain affecting , Nausea vomiting and diarrhea, Acute dehydration, Leukocytosis Patient Disposition: Admitted As Inpatient Condition: Good Discharge Instructions Interventions: ED Discharge Assessment Last Done: 11/07/19 09:10 Discharge Problem: Leukocytosis Qualifiers: Leukocytosis type: unspecified Qualified Code(s): D72.829 - Elevated white blood cell count, unspecified
[2019-11-07 05:25] LABS: Hematocrit (blood only) 38.9 % (37-47); Hemoglobin 13.6 g/dL (12.0-16.0); Mean Corpuscular Hemoglobin 33.3 pg (25-34); Mean Corpuscular Volume 95.1 fL (80-100); Mean Platelet Volume 10.1 fL (7.4-10.4); Platelet Count 281 K/uL (130-400); RDW Coefficient of Variation 13.4 % (11.5-14.5); RDW Standard Deviation 46.8 fL (36.4-46.3); Red Blood Count 4.09 M/uL (4.2-5.4); White Blood Count 26.07 K/uL (4.8-10.8)
[2019-11-07 05:43] LABS: Alanine Aminotransferase 16 U/L (12-78); Albumin Level 3.4 gm/dl (3.4-5.0); Aspartate Aminotransferase 18 U/L (15-37); BUN Creatinine Ratio 12.2 (10-20); Bilirubin Direct < 0.1 mg/dl (0-0.2); Blood Urea Nitrogen 8 mg/dl (7-18); Calcium 9.4 mg/dl (8.5-10.1); Carbon Dioxide 25 mmol/L (21-32); Chloride 108 mmol/L (98-107); Est GFR (African American) 138.1; Est GFR (Non-African American) 119.1; Glucose 104 mg/dl (70-99); Lipase 159 U/L (73-393); Magnesium 1.5 mg/dl (1.8-2.4); Potassium 3.8 mmol/L (3.5-5.1); Sodium 138 mmol/L (136-145)
[2019-11-07 05:45] LABS: Basophils # (auto) 0.03 K/uL (0-0.2); Basophils % (auto) 0.1 %; Eosinophils # (auto) 0.04 K/uL (0-0.5); Eosinophils % (auto) 0.2 %; Immature Granulocytes # (auto) 0.45 K/uL (0.00-0.02); Immature Granulocytes % (auto) 1.7 %; Lymphocytes # (auto) 2.05 K/uL (1.2-3.4); Lymphocytes % (auto) 7.9 %; Monocytes # (auto) 1.39 K/uL (0.11-0.59); Monocytes % (auto) 5.3 %; Neutrophils # (auto) 22.11 K/uL (1.4-6.5); Neutrophils % (auto) 84.8 %
[2019-11-07 05:46] LABS: Alkaline Phosphatase 173 U/L (45-117); Bilirubin,Total 0.3 mg/dl (0.2-1); Total Protein 7.8 gm/dl (6.4-8.2)
[2019-11-07 06:28] LABS: Appearance Urine Clear (Clear); Bacteria Urine Automated 1+ (Negative); Bilirubin Urine Negative (Negative); Blood Urine Negative (Negative); Color Urine Yellow; Epithelial Cell Urine Auto >30 /lpf (0-5); Glucose Urine UA Negative (Negative); Ketones Urine 1+ (Negative); Leukocyte Esterase Urine Negative (Negative); Nitrite Urine Negative (Negative); Protein Urine Trace (Negative); Specific Gravity Urine 1.022 (1.000-1.030); Urobilinogen Urine Negative (Negative)
[2019-11-07 06:43] LABS: Calcium Oxalate Crystals Urine Present (None Prsent)
[2019-11-07] MEDS ORDERED: SODIUM CHLORIDE 0.9% 1000ML 1,000 ML IV SCH (07:00)
[2019-11-07] MEDS ORDERED: cefTRIAXone SODIUM 1,000 MG/50 ML BAG IV SCH (09:30)
--- NOTE | 2019-11-07 09:53 | Hospitalist Consultation ---
Date of Consultation November 07, 2019 Assessment & Plan (1) Nausea vomiting and diarrhea: (2) Possible urinary tract infection: -Admit to L&D unit under PHARMACY SPECIALIST service -Patient presented initially to L&D unit with reports of nausea, vomiting, abdominal pain, diarrhea. Was felt not to be in labor and therefore sent to ED for further evaluation. -Patient received IVF and IV Zofran in the ED, currently feeling much better -WBC 26K; likely multifactorial due to possible UTI, stress response, -Empiric ceftriaxone for possible UTI, await urine culture result -History of C. difficile; check stool for C. difficile and culture -Afebrile, vital signs stable (3) Hypomagnesemia: -MG +1.5 -Replace, follow electrolytes (4) : -35 weeks -Management as per PHARMACY SPECIALIST (5) Depression: -Continue sertraline (6) DVT prophylaxis: -Deferred to PHARMACY SPECIALIST Thank you for this consultation. We will follow the patient with you during their hospital stay. You can reach a [facility]03 via pager @ [phone]. Supervising Physician Co-Signing Physician Notes Attending addendum The patient was seen and examined in [facility] floor She is 35 weeks presented with nausea vomiting and abdominal pain Denies any significant symptoms during my examination On examination Lying in bed with minimal discomfort secondary to Hemodynamically stable Chest-clear to auscultate bilaterally Heart-S1-S2, regular Abdomen-not examined Extremities-no edema Admission labs is notable for white count of more than 26,000 and UA suggestive of infection She was admitted with possible diagnosis of UTI and may have gastroenteritis She was given intravenous fluid and started with IV ceftriaxone Agree with assessment and plan as outlined above by Citlalli Triana History of Present Illness Reason for Consultation: UTI, N/V/D Requesting Physician: Dr. Walker Attending Physician: Dr. Triana History of Present Illness 29-year-old female who presents to the ED for evaluation of abdominal cramping, nausea, vomiting, diarrhea. Patient is 35 weeks . She reports that last night around 10 PM, she had a sudden onset of nausea and vomiting. She reports associated abdominal cramping and tightness. She was initially evaluated in the L&D department and felt not to be in labor and was then sent to the ER for further evaluation. Patient denies hematemesis and coffee-ground emesis. No bright red bleeding per rectum or dark tarry stools. Patient reports she fell hot yesterday however did not have a fever. Denies chills and rigors. No lightheadedness, dizziness, diaphoresis, syncopal event. Denies chest pain shortness of breath. She denies any urinary symptoms. In the ED, WBC 26K, UA suggest possible UTI. She is hemodynamically stable. She was given IVF and IV Zofran with much improvement in her symptoms. Allergies Allergy/AdvReac Type Severity Reaction Status Date / Time amoxicillin Allergy Unknown ITCHY, Verified 11/07/19 05:27 REDNESS Home Medications Home Medications Medication Instructions Recorded Confirmed Type acetaminophen [Tylenol Extra 500 mg PO Q8 PRN 09/27/19 11/07/19 History Strength] omeprazole magnesium [Prilosec OTC] 20 mg PO DAILY 09/27/19 11/07/19 History vit-iron fum-folic ac 1 tab PO DAILY 09/27/19 11/07/19 History [ Vitamin] sertraline [Zoloft] 50 mg PO DAILY 09/27/19 11/07/19 History cholecalciferol (vitamin D3) 50 mcg PO DAILY 11/07/19 11/07/19 History [Vitamin D3] ferrous sulfate 325 mg PO TID 11/07/19 11/07/19 History Patient History Medical History Bipolar disorder (Chronic) Clostridium difficile colitis Depression (Chronic) H/O gastric ulcer (Chronic) IBD (inflammatory bowel disease) Kidney stones (Resolved) Surgical History H/O wisdom tooth extraction (Chronic) S/P ear surgery (Chronic) Family History Other Cancer Heart disease Social History Preferred Language: Chinese Communication Ability: Effective Director Environmental Required: No Beliefs That Will Affect Care: Spiritual marital status: Single Current Living Situation: Other Current Living Situation Comment: lives with 4yo and s/o on weekends current occupational status: employed Other Information That Helps Us Care for You: No Feels Safe at Home: Yes Smoking Status: Current every day smoker Tobacco Type: cigarettes ; Cigarettes Per Day: 7-8/day ; Do You Dip or Chew Tobacco: No ; Second Hand Exposure: Yes (s/o) ; Tobacco Cessation Education Requested by Patient: No Hx Alcohol Use: No Review of Systems Review of Systems: ROS per HPI, all other systems reviewed and negative Physical Exam Constitutional: WD/WN, vitals as above Eyes: PERRL, conjunctivae normal, anicteric sclerae ENMT: external ear and nose normal, oropharynx normal Respiratory: normal respiratory effort, lungs clear to auscultation Cardiovascular: Rate/Rhythm: regular rate and regular rhythm Vessels: normal peripheral pulses Extremities: no edema Gastrointestinal (Abdomen): Inspection/Auscultation: + abdomen distended (Consistent with abdomen) Percussion/Palpation: abdomen nontender Musculoskeletal: no cyanosis or clubbing, extremities motor strength 5/5 Skin: no rashes, warm and dry Neurologic: PERRL, EOMI, accommodation nl, no face palsy, no dysarthria Psychiatric: A+Ox3, euthymic affect Results & Data ([facility]) Vital Signs (Past 12 Hours) Vital Signs Temp Pulse Pulse Resp BP BP Pulse Ox 11/07/19 09:00 101 H 18 101/53 L 99 11/07/19 06:54 80 18 110/57 L 99 11/07/19 05:43 88 18 103/61 99 11/07/19 05:04 36.5 C 108 H 18 123/80 98 Laboratory Results Short CBC 11/07/19 Range/Units 05:17 WBC 26.07 H (4.8-10.8) K/uL Hgb 13.6 (12.0-16.0) g/dL Hct 38.9 (37-47) % Plt Count 281 (130-400) K/uL BMP 11/07/19 05:17 Sodium 138 Potassium 3.8 Chloride 108 H Carbon Dioxide 25 BUN 8 Creatinine 0.65 Glucose 104 H Calcium 9.4 Liver Function 11/07/19 Range/Units 05:17 Total Bilirubin 0.3 (0.2-1) mg/dl Direct Bilirubin < 0.1 (0-0.2) mg/dl AST 18 (15-37) U/L ALT 16 (12-78) U/L Alkaline Phosphatase 173 H (45-117) U/L Albumin 3.4 (3.4-5.0) gm/dl Urine 11/07/19 Range/Units 06:13 Urine Color Yellow Urine Appearance Clear (Clear) Urine pH 6.0 (4.5-7.5) Ur Specific [place] 1.022 (1.000-1.030) Urine Protein Trace H (Negative) Urine Glucose (UA) Negative (Negative)
[2019-11-07] MEDS ORDERED: ONDANSETRON INJ 2 MG/ML 2 ML VIAL IV PRN ×2 (10:41→11:16)
[2019-11-07] MEDS ORDERED: LACTATED RINGER'S 1,000 ML IV PRN (10:41)
[2019-11-07] MEDS ORDERED: ACETAMINOPHEN 325 MG TAB PO PRN ×2 (10:41→11:16)
[2019-11-07] MEDS ORDERED: PATIENT'S HEIGHT AND/OR WEIGHT NEEDED SCH (10:45)
--- NOTE | 2019-11-07 11:38 | History & Physical Report ---
Date of Service November 07, 2019 History of Present Illness Primary Care Provider: Sherice Cross DO Allergies Allergy/AdvReac Type Severity Reaction Status Date / Time amoxicillin Allergy Unknown ITCHY, Verified 11/07/19 05:27 REDNESS Home Medications Home Medications Medication Instructions Recorded Confirmed Type acetaminophen [Tylenol Extra 500 mg PO Q8 PRN 09/27/19 11/07/19 History Strength] omeprazole magnesium [Prilosec OTC] 20 mg PO DAILY 09/27/19 11/07/19 History vit-iron fum-folic ac 1 tab PO DAILY 09/27/19 11/07/19 History [ Vitamin] sertraline [Zoloft] 50 mg PO DAILY 09/27/19 11/07/19 History cholecalciferol (vitamin D3) 50 mcg PO DAILY 11/07/19 11/07/19 History [Vitamin D3] ferrous sulfate 325 mg PO TID 11/07/19 11/07/19 History Patient History Medical History Bipolar disorder (Chronic) Clostridium difficile colitis Depression (Chronic) H/O gastric ulcer (Chronic) IBD (inflammatory bowel disease) Kidney stones (Resolved) Surgical History H/O wisdom tooth extraction (Chronic) S/P ear surgery (Chronic) Family History Other Cancer Heart disease Social History Preferred Language: Belarusian Communication Ability: Effective Director Of Officiating Required: No Beliefs That Will Affect Care: Spiritual marital status: Single Current Living Situation: Other Current Living Situation Comment: lives with 4yo and s/o on weekends current occupational status: employed Other Information That Helps Us Care for You: No Feels Safe at Home: Yes Smoking Status: Current every day smoker Tobacco Type: cigarettes ; Cigarettes Per Day: 7-8/day ; Do You Dip or Chew Tobacco: No ; Second Hand Exposure: Yes (s/o) ; Tobacco Cessation Education Requested by Patient: No Hx Alcohol Use: No Results & Data Vital Signs (Past 12 Hours) Vital Signs Temp Pulse Pulse Pulse Resp BP BP 11/07/19 09:20 36.4 C L 75 16 110/68 11/07/19 09:00 101 H 18 101/53 L 11/07/19 06:54 80 18 110/57 L 11/07/19 05:43 88 18 103/61 11/07/19 05:04 36.5 C 108 H 18 123/80 Pulse Ox 11/07/19 09:20 98 11/07/19 09:00 99 11/07/19 06:54 99 11/07/19 05:43 99 11/07/19 05:04 98
[2019-11-07] MEDS: LACTATED RINGER'S 1,000 ML IV PRN ×2 (11:42→20:48)
[2019-11-07] MEDS: MAGNESIUM OXIDE 400 MG TAB PO SCH ×2 (11:43→20:49)
[2019-11-07] MEDS: cefTRIAXone SODIUM 1,000 MG/50 ML BAG IV SCH (12:22)
[2019-11-07 18:31] LABS: Basophils # (auto) 0.01 K/uL (0-0.2); Basophils % (auto) 0.1 %; Eosinophils # (auto) 0.05 K/uL (0-0.5); Eosinophils % (auto) 0.3 %; Hematocrit (blood only) 32.4 % (37-47); Hemoglobin 11.1 g/dL (12.0-16.0); Immature Granulocytes # (auto) 0.14 K/uL (0.00-0.02); Immature Granulocytes % (auto) 0.9 %; Lymphocytes # (auto) 1.62 K/uL (1.2-3.4); Mean Corpuscular Hemoglobin 32.2 pg (25-34); Mean Corpuscular Hgb Conc 34.3 g/dL (32-36); Mean Corpuscular Volume 93.9 fL (80-100); Mean Platelet Volume 9.7 fL (7.4-10.4); Monocytes # (auto) 0.69 K/uL (0.11-0.59); Monocytes % (auto) 4.2 %; Neutrophils # (auto) 13.74 K/uL (1.4-6.5); Neutrophils % (auto) 84.5 %; Platelet Count 216 K/uL (130-400); RDW Coefficient of Variation 13.6 % (11.5-14.5); RDW Standard Deviation 46.6 fL (36.4-46.3); Red Blood Count 3.45 M/uL (4.2-5.4); White Blood Count 16.25 K/uL (4.8-10.8)
[2019-11-07 18:48] LABS: Alanine Aminotransferase 12 U/L (12-78); Albumin Level 2.5 gm/dl (3.4-5.0); Aspartate Aminotransferase 13 U/L (15-37); Blood Urea Nitrogen 6 mg/dl (7-18); Calcium 8.2 mg/dl (8.5-10.1); Carbon Dioxide 23 mmol/L (21-32); Chloride 111 mmol/L (98-107); Creatinine Clr Calc Pharmacy 161.1 ml/min; Est GFR (African American) > 150.0; Est GFR (Non-African American) 133.5; Glucose Fasting 84 mg/dl (70-99); Potassium 3.5 mmol/L (3.5-5.1); Sodium 137 mmol/L (136-145)
[2019-11-07 18:56] LABS: Albumin Globulin Ratio 0.8 (0.9-2); Alkaline Phosphatase 128 U/L (45-117); Bilirubin,Total 0.4 mg/dl (0.2-1); Globulin 3.3 gm/dl (2.5-4.0); Total Protein 5.8 gm/dl (6.4-8.2)
[2019-11-08] MEDS: LACTATED RINGER'S 1,000 ML IV PRN (04:57)
[2019-11-08 05:49] LABS: Basophils # (auto) 0.02 K/uL (0-0.2); Basophils % (auto) 0.2 %; Eosinophils # (auto) 0.09 K/uL (0-0.5); Eosinophils % (auto) 0.8 %; Hematocrit (blood only) 31.5 % (37-47); Hemoglobin 10.8 g/dL (12.0-16.0); Immature Granulocytes # (auto) 0.11 K/uL (0.00-0.02); Immature Granulocytes % (auto) 0.9 %; Lymphocytes # (auto) 1.94 K/uL (1.2-3.4); Lymphocytes % (auto) 16.5 %; Mean Corpuscular Hemoglobin 32.6 pg (25-34); Mean Corpuscular Hgb Conc 34.3 g/dL (32-36); Mean Corpuscular Volume 95.2 fL (80-100); Monocytes # (auto) 0.83 K/uL (0.11-0.59); Monocytes % (auto) 7.1 %; Neutrophils # (auto) 8.75 K/uL (1.4-6.5); Neutrophils % (auto) 74.5 %; Platelet Count 230 K/uL (130-400); RDW Coefficient of Variation 13.6 % (11.5-14.5); RDW Standard Deviation 47.1 fL (36.4-46.3); Red Blood Count 3.31 M/uL (4.2-5.4); White Blood Count 11.74 K/uL (4.8-10.8)
[2019-11-08 06:25] LABS: Albumin Level 2.3 gm/dl (3.4-5.0); BUN Creatinine Ratio 9.7 (10-20); Calcium 8.1 mg/dl (8.5-10.1); Creatinine Clr Calc Pharmacy 145.3 ml/min; Est GFR (African American) 149.6; Magnesium 1.4 mg/dl (1.8-2.4); Potassium 3.4 mmol/L (3.5-5.1)
[2019-11-08 06:27] LABS: Albumin Globulin Ratio 0.7 (0.9-2); Bilirubin,Total 0.2 mg/dl (0.2-1); Globulin 3.3 gm/dl (2.5-4.0); Total Protein 5.6 gm/dl (6.4-8.2)
[2019-11-08] MEDS: MAGNESIUM OXIDE 400 MG TAB PO SCH (08:41)
[2019-11-08] MEDS ORDERED: cefTRIAXone SODIUM 1,000 MG/50 ML BAG IV SCH (09:30)
--- NOTE | 2019-11-08 10:50 | Hospitalist Progress Note ---
Date of Service November 08, 2019 Assessment & Plan (1) Nausea vomiting and diarrhea: (2) Possible urinary tract infection: -Admit to L&D unit under [employer]PER[employer] service -Patient presented initially to L&D unit with reports of nausea, vomiting, abdominal pain, diarrhea. Was felt not to be in labor and therefore sent to ED for further evaluation. -Patient received IVF and IV Zofran in the ED, currently feeling much better -WBC 26K; likely multifactorial due to possible UTI, stress response, -Empiric ceftriaxone for possible UTI, await urine culture result -History of C. difficile; check stool for C. difficile and culture -Afebrile, vital signs stable -Clinically a lot better without any urinary symptoms and the white count is normalized Urine culture is still pending She wants to go home and that can be done with oral Keflex 500mg PO 3 times daily for next 3 days If the urine culture and sensitivity comes out to be anything other than Keflex can be used that has to be communicated to the patient (3) Hypomagnesemia: -MG +1.5 -Replace, follow electrolytes (4) : -35 weeks -Management as per [employer] OPERATOR (5) Depression: -Continue sertraline (6) DVT prophylaxis: -Deferred to [employer]INE OPERATOR Thank you for this consultation. We will follow the patient with you during their hospital stay. You can reach a member of the [facility] Hospitalist Team 11/03 via pager @ [phone]. Medically stable to discharge; pending urine culture as mentioned earlier. Admission and Anticipated Discharge Date Admission Date: November 07, 2019 Subjective The patient was seen and examined in [facility] unit She denies any symptoms as of today No more nausea and/or vomiting and no problem with urination Denies any fever and/or chills Review of Systems Review of Systems: All systems reviewed and are unremarkable except as noted below Physical Exam Physical Exam: Lying in bed comfortably Constitutional: WD/WN, vitals as above Eyes: PERRL, conjunctivae normal, anicteric sclerae ENMT: external ear and nose normal, oropharynx normal Respiratory: normal respiratory effort, lungs clear to auscultation Cardiovascular: Rate/Rhythm: regular rate and regular rhythm Vessels: normal peripheral pulses Extremities: no edema Gastrointestinal (Abdomen): Inspection/Auscultation: + abdomen distended (Consistent with abdomen) Percussion/Palpation: abdomen nontender Musculoskeletal: no cyanosis or clubbing, extremities motor strength 5/5 Skin: no rashes, warm and dry Neurologic: PERRL, EOMI, accommodation nl, no face palsy, no dysarthria Psychiatric: A+Ox3, euthymic affect Genitourinary: no CVA tenderness Results & Data ([facility]) Vital Signs (Past 12 Hours) Vital Signs Temp Pulse Resp BP Pulse Ox 11/08/19 07:50 36.5 C 74 18 110/67 99 11/08/19 03:35 36.6 C 70 20 104/63 98 11/08/19 00:30 36.6 C 76 18 95/53 L 98 Laboratory Results Short CBC 11/07/19 11/08/19 Range/Units 18:24 05:27 WBC 16.25 H 11.74 H (4.8-10.8) K/uL Hgb 11.1 L 10.8 L (12.0-16.0) g/dL Hct 32.4 L 31.5 L (37-47) % Plt Count 216 230 (130-400) K/uL [facility] 11/07/19 11/08/19 18:24 05:27 Sodium 137 138 Potassium 3.5 3.4 L Chloride 111 H 111 H Carbon Dioxide 23 22 BUN 6 L 5 L Creatinine 0.46 L 0.51 L Glucose 108 H Calcium 8.2 L 8.1 L Liver Function 11/07/19 11/08/19 Range/Units 18:24 05:27 Total Bilirubin 0.4 0.2 (0.2-1) mg/dl AST 13 L 12 L (15-37) U/L ALT 12 11 L (12-78) U/L Alkaline Phosphatase 128 H 123 H (45-117) U/L Albumin 2.5 L 2.3 L (3.4-5.0) gm/dl Medications Administered Current Inpatient Medications Acetaminophen (Tylenol) 650 mg PO Q4H PRN PRN Reason: Pain or Fever Stop: 12/07/19 10:40 Sodium Chloride (Nss 1000ml) 1,000 mls @ 80 mls/hr IV .[id number] RODRICK Stop: 12/07/19 06:59 Last Infusion: 11/07/19 11:42 Dose: Infused Documented by: Lactated Ringer's (Lr) 1,000 mls @ 125 mls/hr IV .Q8H PRN; Protocol PRN Reason: L&D Protocol Stop: 12/07/19 10:40 Last Infusion: 11/08/19 06:20 Dose: 125 mls/hr Documented by: Ceftriaxone Sodium (Rocephin) 1,000 mg in 50 mls @ 100 mls/hr IV Q24H [facility] Stop: 11/12/19 11:59 Last Infusion: 11/07/19 12:52 Dose: Infused Documented by: Magnesium Oxide (Mag-Ox) 400 mg PO BID [facility] Stop: 12/07/19 10:14 Last Admin: 11/08/19 08:41 Dose: 400 mg Documented by: Ondansetron HCl (Zofran) 4 mg IV Q4H PRN PRN Reason: Nausea And Vomiting Stop: 12/07/19 10:40
[2019-11-08] MEDS: cefTRIAXone SODIUM 1,000 MG/50 ML BAG IV SCH (11:26)
--- NOTE | 2019-11-08 11:42 | Obstetrical Progress Note ---
Date of Service November 08, 2019 Assessment & Plan Admission and Anticipated Discharge Date Admission Date: November 07, 2019 Subjective doing well ambulating ok no abdominal pain or vomitng Results & Data ([facility]) Vital Signs (Past 12 Hours) Vital Signs Temp Pulse Resp BP Pulse Ox 11/08/19 11:30 36.4 C L 75 18 105/67 98 11/08/19 07:50 36.5 C 74 18 110/67 99 11/08/19 03:35 36.6 C 70 20 104/63 98 11/08/19 00:30 36.6 C 76 18 95/53 L 98
--- NOTE | 2019-11-23 14:16 | Discharge Summary (DS) ---
HISTORY OF PRESENT ILLNESS AND HOSPITAL COURSE: The patient is a 29-year-old female, 35 weeks , who was admitted for nausea, vomiting and diarrhea, possible urinary tract infection. She was admitted to labor and delivery unit under RN MED SURG service. Her white cell count was 26,000, likely multifactorial, possible UTI and possible related. She was given ceftriaxone for possible UTI pending urine cultures. The patient subsequently did very well. She was ambulating well. She decreased her temperature and white count, which was normal and she was discharged home in stable condition on 11/08/2019 to be followed up in the office in 1 week. Home going instructions were given. Condition on discharge is stable. Regular diet on discharge. No further need for hospitalization at this time.
== END 2019-11-08 12:20 | disposition home or self-care (01) ==
LOC: 4N 05:00 → ED 05:00

== ENCOUNTER 2019-12-12 00:28 | Inpatient (IN) ==
[2019-12-12] MEDS: LACTATED RINGER'S 1,000 ML IV PRN ×3 (01:05→10:10)
[2019-12-12] MEDS ORDERED: OXYTOCIN 30 UNITS/500 ML BAG IV PRN ×4 (01:08→14:37)
[2019-12-12] MEDS ORDERED: BUPIVACAINE 0.25% 30 ML VIAL ONE (01:21)
[2019-12-12] MEDS ORDERED: ePHEDrine sulfate 50 MG/ML AMP ONE (01:21)
[2019-12-12] MEDS ORDERED: fentaNYL citrate 100 MCG/2 ML VIAL ONE (01:22)
[2019-12-12] MEDS ORDERED: fentaNYL 2MCG/ML ROPIV 1.25MG/ML 100 ML BAG EPI ONE (01:22)
[2019-12-12 01:33] LABS: Hematocrit (blood only) 34.9 % (37-47); Hemoglobin 12.4 g/dL (12.0-16.0); Mean Corpuscular Hemoglobin 33.2 pg (25-34); Mean Corpuscular Volume 93.6 fL (80-100); Mean Platelet Volume 10.4 fL (7.4-10.4); Platelet Count 215 K/uL (130-400); RDW Coefficient of Variation 13.5 % (11.5-14.5); RDW Standard Deviation 46.3 fL (36.4-46.3); Red Blood Count 3.73 M/uL (4.2-5.4); White Blood Count 20.96 K/uL (4.8-10.8)
[2019-12-12 01:36] LABS: Mean Corpuscular Hgb Conc 35.5 g/dL (32-36)
--- NOTE | 2019-12-12 02:11 | Anesthesiology Consultation ---
Date of Service December 12, 2019 Assessment & Plan Chart Review Chart Review: Acceptable Risk for Labor Epidural Consults Requested none ASA ASA2 Proposed Anesthesia Anesthesia Type: Labor Epidural Risk / Benefits Reviewed With: PT / POA / Parent / Guardian, Accepts Plan and Informed Consent Obtained History Height/Weight Height: 5 ft Weight: 75.75 kg Allergies Allergy/AdvReac Type Severity Reaction Status Date / Time amoxicillin Allergy Unknown ITCHY, Verified 11/07/19 05:27 REDNESS Medications Home Medications Medication Instructions Recorded Confirmed Last Taken cholecalciferol (vitamin D3) 50 mcg PO DAILY 12/12/19 12/12/19 12/11/19 08:00 omeprazole magnesium [Prilosec OTC] 20 mg PO DAILY 12/12/19 12/12/19 12/11/19 18:00 vit [id number] 1 tab PO DAILY 12/12/19 12/12/19 12/11/19 08:00 [ Vitamin] sertraline [Zoloft] 50 mg PO DAILY 12/12/19 12/12/19 12/11/19 21:00 Active Medications Generic Name Dose Route Start Last Admin Trade Name Freq PRN Reason Stop Dose Admin Lactated Ringer's 1,000 mls @ 125 mls/hr 12/12/19 01:08 12/12/19 02:10 Lr IV 12/14/19 01:07 125 mls/hr .Q8H PRN Administration L&D Protocol Protocol NPO Date Last Intake of Fluids: 12/11/19 Time Last Intake of Fluids: 21:00 Date Last Intake of Solids: 12/11/19 Past Medical History Medical History Bipolar disorder (Chronic) Clostridium difficile colitis Depression (Chronic) H/O gastric ulcer (Chronic) IBD (inflammatory bowel disease) Kidney stones (Resolved) depression After first child hemorrhage after second child Exercise / Class Metabolic Activity II 4-5 Yardwork/Stairs/Walk up hill Past Family History Family History Other Cancer Heart disease Past Surgical History Surgical History H/O hemorrhoidectomy 2016 H/O wisdom tooth extraction (Chronic) S/P ear surgery (Chronic) Past Anesthesia History No Hx of Anesthesia Complications and No Family Hx of Anesthesia Complications History of PONV No Hx of PONV and No Hx of Motion Sickness Social History Smoking Status: Current every day smoker tobacco type: cigarettes Smoking cigarettes per day: 7 Do You Dip or Chew Tobacco: No Hx Alcohol Use: No Alcohol type: hard liquor alcohol intake frequency: 0-2 drinks per day Hx Substance Use: No substance use type: does not use, former substance user and marijuana Last Used Substance Other:: Quit using mariguana two years ago Physical Exam Vital Signs Last Vital Signs Temp 37.0 C 12/12/19 00:48 Pulse 85 12/12/19 02:07 Resp 18 12/12/19 00:48 BP 123/80 12/12/19 00:48 Pulse Ox 92 12/12/19 02:07 ENMT Mouth: no TMJ abnormality Thyromental Distance: > or= 3.5 Finger Breadths Mallampati Class: II Neck normal visual inspection and trachea midline; neck extension not limited Respiratory normal respiratory effort Auscultation: lungs clear to auscultation bilaterally Cardiovascular Rate/Rhythm: regular rate and regular rhythm Heart Sounds: no murmur Musculoskeletal Spine: normal cervical ROM Extremities: full ROM of extremities Neurologic moves all extremities Psychiatric Orientation: alert and oriented x 3 Testing Laboratory Results 12/12/19 01:15
[2019-12-12] MEDS ORDERED: ePHEDrine sulfate 50 MG/ML AMP IV PRN (02:31)
[2019-12-12] MEDS ORDERED: NALBUPHINE HCL INJ 10 MG/ML AMP IV PRN (02:31)
[2019-12-12] MEDS ORDERED: ONDANSETRON INJ 2 MG/ML 2 ML VIAL IV PRN (02:31)
[2019-12-12] MEDS ORDERED: NALOXONE HCL 0.4 MG/1 ML VIAL/CARP IV PRN (02:31)
[2019-12-12] MEDS ORDERED: fentaNYL 2MCG/ML ROPIV 1.25MG/ML 100 ML BAG EPI PRN (02:31)
[2019-12-12] MEDS ORDERED: NALOXONE HCL 1 MG in SODIUM CHLORIDE 0.9% 1000ML 1,000 ML IV PRN (02:31)
[2019-12-12] MEDS ORDERED: DiphenhydrAMINE HCL 50 MG/ML VIAL IV PRN (02:31)
[2019-12-12] MEDS ORDERED: PROMETHAZINE HCL 25 MG in SODIUM CHLORIDE 0.9% 50 ML IV PRN (02:31)
[2019-12-12] MEDS ORDERED: METOCLOPRAMIDE HCL 20 MG in SODIUM CHLORIDE 0.9% 50 ML IV PRN (02:31)
--- NOTE | 2019-12-12 03:39 | Obstetrical Progress Note ---
Date of Service December 12, 2019 Assessment & Plan Admission and Anticipated Discharge Date Admission Date: December 12, 2019 Subjective Pt doing well FHR; CAT1 VE; 4-5/50/-2 Ctx 2-4ins Discussed AROM with pt- She agreed AROM with scalp electrode -clear amniotic fluid Results & Data ([facility]) Vital Signs (Past 12 Hours) Vital Signs Temp Pulse Resp BP Pulse Ox 12/12/19 03:34 74 95 12/12/19 03:29 82 96 12/12/19 03:26 75 103/56 L 12/12/19 03:24 80 96 12/12/19 03:19 81 95 12/12/19 03:14 82 95 12/12/19 03:10 84 104/57 L 12/12/19 03:09 81 94 12/12/19 03:04 80 95 12/12/19 03:00 18 12/12/19 02:59 87 97 12/12/19 02:54 83 97/53 L 95 12/12/19 02:49 82 96 12/12/19 02:46 85 94 12/12/19 02:44 74 96 12/12/19 02:39 81 96 12/12/19 02:38 82 107/62 12/12/19 02:36 82 105/58 L 12/12/19 02:34 83 110/60 95 12/12/19 02:32 79 106/62 12/12/19 02:31 83 94 12/12/19 02:30 95 H 103/60 12/12/19 02:29 90 96 12/12/19 02:28 103 H 110/61 12/12/19 02:26 87 110/61 12/12/19 02:24 86 113/65 95 12/12/19 02:19 95 H 96 12/12/19 02:14 95 H 95 12/12/19 02:13 80 94 12/12/19 02:09 85 95 12/12/19 02:07 85 92 12/12/19 02:04 81 97 12/12/19 01:59 80 98 12/12/19 01:54 83 96 12/12/19 01:49 83 98 12/12/19 00:48 37.0 C 90 18 123/80
--- NOTE | 2019-12-12 07:49 | Obstetrical Progress Note ---
Date of Service December 12, 2019 Assessment & Plan Admission and Anticipated Discharge Date Admission Date: December 12, 2019 Subjective Pt doing well FHR; CAT! CTx ; 1-2mins VE 50/-1 EFW on sono 12/12/19 was >[id number] will sign pt out to Dr Walker Results & Data ([facility]) Vital Signs (Past 12 Hours) Vital Signs Temp Pulse Resp BP Pulse Ox 12/12/19 07:46 83 112/63 12/12/19 07:44 88 95 12/12/19 07:39 92 H 93 12/12/19 07:34 89 93 12/12/19 07:32 81 100/55 L 12/12/19 07:29 81 95 12/12/19 07:24 95 H 96 12/12/19 07:19 83 94 12/12/19 07:17 37.4 C 86 18 106/58 L 12/12/19 07:14 88 95 12/12/19 07:09 88 95 12/12/19 07:04 100 H 93 12/12/19 07:02 80 106/59 L 12/12/19 07:00 18 12/12/19 06:59 82 94 12/12/19 06:54 93 H 93 12/12/19 06:49 78 93 12/12/19 06:44 91 H 94 12/12/19 06:43 83 102/56 L 12/12/19 06:39 86 93 12/12/19 06:37 82 103/50 L 12/12/19 06:34 77 93 12/12/19 06:32 81 100/52 L 12/12/19 06:30 18 12/12/19 06:29 84 94 12/12/19 06:26 73 97/51 L 12/12/19 06:24 82 93/50 L 96 12/12/19 06:19 84 125/55 L 97 12/12/19 06:18 88 86 L 12/12/19 06:16 77 85/49 L 12/12/19 06:14 78 94 12/12/19 06:09 87 88/49 L 95 12/12/19 06:04 86 94 12/12/19 06:00 18 12/12/19 05:59 80 94 12/12/19 05:54 86 96/50 L 93 12/12/19 05:49 81 95 12/12/19 05:44 81 94 12/12/19 05:39 80 97/50 L 95 12/12/19 05:34 87 94 12/12/19 05:30 18 12/12/19 05:29 90 96 12/12/19 05:24 79 105/52 L 95 12/12/19 05:21 36.7 C 12/12/19 05:19 82 95 12/12/19 05:14 89 95 12/12/19 05:10 68 104/51 L 12/12/19 05:09 79 96 12/12/19 05:04 88 93 12/12/19 05:00 18 12/12/19 04:59 83 94 12/12/19 04:55 84 96/55 L 12/12/19 04:54 83 94 12/12/19 04:49 78 95 12/12/19 04:44 81 96 12/12/19 04:39 87 96/53 L 93 12/12/19 04:34 76 93 12/12/19 04:29 78 94 12/12/19 04:24 78 99/53 L 95 12/12/19 04:19 81 94 12/12/19 04:14 74 94 12/12/19 04:10 74 98/54 L 87 L 12/12/19 04:09 89 94 12/12/19 04:04 76 94 12/12/19 04:00 18 12/12/19 03:59 76 93 12/12/19 03:54 80 95/50 L 94 12/12/19 03:49 76 94 12/12/19 03:44 75 94 12/12/19 03:39 74 103/57 L 95 12/12/19 03:34 74 95 12/12/19 03:31 36.8 C 12/12/19 03:30 18 12/12/19 03:29 82 96 12/12/19 03:26 75 103/56 L 12/12/19 03:24 80 96 12/12/19 03:19 81 95 12/12/19 03:14 82 95 12/12/19 03:10 84 104/57 L 12/12/19 03:09 81 94 12/12/19 03:04 80 95 12/12/19 03:00 18 12/12/19 02:59 87 97 12/12/19 02:54 83 97/53 L 95 12/12/19 02:49 82 96 12/12/19 02:46 85 94 12/12/19 02:44 74 96 12/12/19 02:39 81 96 12/12/19 02:38 82 107/62 12/12/19 02:36 82 105/58 L 12/12/19 02:34 83 110/60 95 12/12/19 02:32 79 106/62 12/12/19 02:31 83 94 12/12/19 02:30 95 H 103/60 12/12/19 02:29 90 96 12/12/19 02:28 103 H 110/61 12/12/19 02:26 87 110/61 12/12/19 02:24 86 113/65 95 12/12/19 02:19 95 H 96 12/12/19 02:14 95 H 95 12/12/19 02:13 80 94 12/12/19 02:09 85 95 12/12/19 02:07 85 92 12/12/19 02:04 81 97 12/12/19 01:59 80 98 12/12/19 01:54 83 96 12/12/19 01:49 83 98 12/12/19 00:48 37.0 C 90 18 123/80
[2019-12-12] MEDS ORDERED: BENZOCAINE 20% AER SPR 82.5 GM CAN EXT PRN (14:37)
[2019-12-12] MEDS ORDERED: HYDROCORTISONE ACETATE 25 MG SUPP PR PRN (14:37)
[2019-12-12] MEDS ORDERED: DIPHTHERIA/TETANUS/PERTUSSIS 0.5 ML SYR/VIAL IM ONE (14:37)
[2019-12-12] MEDS ORDERED: SUPERCREAM 0.870% 15 GM JAR EXT PRN (14:37)
--- NOTE | 2019-12-12 14:38 | Delivery Summary ---
Vaginal Delivery Summary Date of Service December 12, 2019 Supervising Physician Co-Signing Physician Notes Delivery Note live male over intact perineum with nuchal cord x1 reduced on perineum with delayed cord clamping. Apgars 8/9 weight pending. Cord blood obtained followed by spontaneous delivery of intact placenta. First degree tear repaired with 0 Vicryl suture. EBL 200 ml. Final sponge, needle and instrument count are correct. Mom and baby stable.
[2019-12-12] MEDS ORDERED: LACTATED RINGER'S 1,000 ML IV SCH (14:45)
--- NOTE | 2019-12-12 14:46 | Anesthesia Procedure Note ---
Date of Service December 12, 2019 Anesthesia Post Epidural Note Vital Signs Vital Signs: Temp Pulse Resp BP Pulse Ox 38.5 C H 93 H 20 128/62 98 12/12/19 12:44 12/12/19 14:36 12/12/19 12:44 12/12/19 14:36 12/12/19 14:09 Notes Mental Status: alert / awake / arousable and participated in evaluation Patient Amnestic to Procedure: No Nausea / Vomiting: adequately controlled Pain: adequately controlled Airway Patency, RR, SpO2: stable & adequate BP & HR: stable & adequate Hydration State: stable & adequate Neuraxial Anesthesia: was administered and sensory block is resolving Anesthetic Complications: no major complications apparent and Pt Satisfied with anesthetic care Epidural: Removed without complications and With tip intact
[2019-12-12] MEDS: IBUPROFEN 600 MG TAB PO PRN ×2 (15:21→21:10)
[2019-12-12] MEDS ORDERED: METHYLERGONOVINE MALEATE 0.2 MG/ML AMP IM PRN (16:47)
[2019-12-12] MEDS ORDERED: METHYLERGONOVINE MALEATE 0.2 MG/ML AMP ONE (16:50)
[2019-12-12] MEDS: SERTRALINE HCL 50 MG TABLET PO SCH (17:58)
[2019-12-12] MEDS ORDERED: miSOPROStoL 200 MCG TAB ONE (18:18)
--- NOTE | 2019-12-12 18:36 | Obstetrical Progress Note ---
Date of Service December 12, 2019 Assessment & Plan Admission and Anticipated Discharge Date Admission Date: December 12, 2019 Physical Exam Constitutional: WD/WN, vitals as above + acute distress I was called to see patient with post bleeding. She was given Methergine which slowed down her bleeding but it continued to bleed. I examined the entire vagina and entire cervix. There was no cervical lacerations or sulcus tears. 1000 mg Cytotec inserted rectally. Fundus boggy initially but firmed up. I again re- examined the entire vagina and cervix again and no tears noted. [place] was then inserted. In view of polyhydramnios and macrosomia with long labor will continue monitoring for atony. Stable XBP 117/69 Pulse 72. Results & Data ([facility]) Vital Signs (Past 12 Hours) Vital Signs Temp Pulse Resp BP Pulse Ox 12/12/19 18:15 85 119/79 12/12/19 18:10 78 111/64 12/12/19 18:05 76 111/69 12/12/19 17:48 85 105/58 L 12/12/19 17:33 86 123/67 12/12/19 17:18 78 125/71 12/12/19 16:48 79 122/63 12/12/19 16:33 91 H 121/67 12/12/19 16:12 98 H 115/64 12/12/19 15:50 18 12/12/19 15:36 104 H 118/57 L 12/12/19 15:35 18 12/12/19 15:21 98 H 119/81 12/12/19 15:06 93 H 117/68 12/12/19 15:05 36.7 C 18 12/12/19 14:51 90 102/55 L 12/12/19 14:36 93 H 128/62 12/12/19 14:20 103 H 108/61 12/12/19 14:16 96 H 122/59 L 12/12/19 14:09 106 H 98 12/12/19 14:04 84 97 12/12/19 13:59 86 97 12/12/19 13:54 89 98 12/12/19 13:49 83 98 12/12/19 13:44 94 H 97 12/12/19 13:39 90 97 12/12/19 13:34 80 97 12/12/19 13:32 83 98/53 L 12/12/19 13:29 84 93 12/12/19 13:24 91 H 94 12/12/19 13:19 86 94 12/12/19 13:17 82 101/51 L 12/12/19 13:14 86 94 12/12/19 13:09 89 93 12/12/19 13:04 89 94 12/12/19 13:02 83 105/53 L 12/12/19 12:59 93 H 95 12/12/19 12:54 91 H 94 12/12/19 12:49 90 94 12/12/19 12:47 78 105/58 L 12/12/19 12:44 38.5 C H 89 20 94 12/12/19 12:39 83 95 12/12/19 12:34 90 93 12/12/19 12:32 86 109/63 12/12/19 12:29 89 94 12/12/19 12:24 94 H 94 12/12/19 12:19 93 H 93 12/12/19 12:15 90 102/55 L 12/12/19 12:14 91 H 94 12/12/19 12:09 84 95 12/12/19 12:04 89 94 12/12/19 12:01 87 114/57 L 12/12/19 11:59 102 H 95 12/12/19 11:54 79 93 12/12/19 11:49 79 95 12/12/19 11:46 81 110/56 L 12/12/19 11:44 88 95 12/12/19 11:39 83 95 12/12/19 11:34 86 96 12/12/19 11:31 84 109/52 L 81 L 12/12/19 11:29 95 H 95 12/12/19 11:24 93 H 95 12/12/19 11:19 84 95 12/12/19 11:16 113 H 85 L 12/12/19 11:15 20 12/12/19 11:14 79 95 12/12/19 11:09 82 95 12/12/19 11:04 81 95 12/12/19 11:01 97 H 96/51 L 12/12/19 10:59 92 H 94 12/12/19 10:54 96 H 95 12/12/19 10:49 97 H 95 12/12/19 10:46 86 108/51 L 12/12/19 10:45 20 12/12/19 10:44 87 94 12/12/19 10:39 92 H 95 12/12/19 10:34 101 H 95 12/12/19 10:31 93 H 109/62 85 L 12/12/19 10:29 94 H 94 12/12/19 10:24 91 H 94 12/12/19 10:19 87 95 12/12/19 10:15 18 12/12/19 10:14 90 95 12/12/19 10:09 89 95 12/12/19 10:04 83 96 12/12/19 10:03 88 106/57 L 12/12/19 09:59 82 95 12/12/19 09:54 87 94 12/12/19 09:49 81 94 12/12/19 09:47 88 107/54 L 12/12/19 09:45 20 12/12/19 09:44 95 H 94 12/12/19 09:43 89 86 L 12/12/19 09:39 91 H 93 12/12/19 09:34 37.6 C H 98 H 20 94 12/12/19 09:33 81 114/58 L 12/12/19 09:29 85 95 12/12/19 09:24 79 93 12/12/19 09:19 75 92 12/12/19 09:16 89 101/52 L 12/12/19 09:15 20 12/12/19 09:14 85 93 12/12/19 09:09 82 93 12/12/19 09:04 90 93 12/12/19 09:02 85 107/53 L 12/12/19 08:59 93 H 95 12/12/19 08:54 94 H 94 12/12/19 08:49 93 H 94 12/12/19 08:47 81 93/51 L 12/12/19 08:45 18 12/12/19 08:44 85 95 12/12/19 08:39 75 95 12/12/19 08:34 81 94 12/12/19 08:30 81 106/58 L 12/12/19 08:29 77 97 12/12/19 08:24 88 96 12/12/19 08:19 81 95 12/12/19 08:17 76 105/54 L 12/12/19 08:15 20 12/12/19 08:14 78 95 12/12/19 08:09 76 95 12/12/19 08:04 79 95 12/12/19 08:02 76 110/58 L 12/12/19 07:59 83 95 12/12/19 07:54 82 95 12/12/19 07:49 88 96 12/12/19 07:48 101 H 87 L 12/12/19 07:46 83 112/63 12/12/19 07:45 20 12/12/19 07:44 88 95 12/12/19 07:39 92 H 93 12/12/19 07:34 89 93 12/12/19 07:32 81 100/55 L 12/12/19 07:29 81 95 12/12/19 07:24 95 H 96 12/12/19 07:19 83 94 12/12/19 07:17 37.4 C 86 18 106/58 L 12/12/19 07:14 88 95 12/12/19 07:09 88 95 12/12/19 07:04 100 H 93 12/12/19 07:02 80 106/59 L 12/12/19 07:00 18 12/12/19 06:59 82 94 12/12/19 06:54 93 H 93 12/12/19 06:49 78 93 12/12/19 06:44 91 H 94 12/12/19 06:43 83 102/56 L 12/12/19 06:39 86 93 12/12/19 06:37 82 103/50 L 12/12/19 06:34 77 93 12/12/19 06:32 81 100/52 L
[2019-12-12] MEDS: DOCUSATE SODIUM 100 MG CAP PO SCH (21:10)
[2019-12-13] MEDS: IBUPROFEN 600 MG TAB PO PRN ×3 (04:31→15:19)
[2019-12-13 06:34] LABS: Hematocrit (blood only) 29.5 % (37-47); Hemoglobin 10.1 g/dL (12.0-16.0); Mean Corpuscular Hemoglobin 32.2 pg (25-34); Mean Corpuscular Hgb Conc 34.2 g/dL (32-36); Mean Corpuscular Volume 93.9 fL (80-100); Mean Platelet Volume 10.6 fL (7.4-10.4); Platelet Count 196 K/uL (130-400); RDW Coefficient of Variation 13.5 % (11.5-14.5); RDW Standard Deviation 46.4 fL (36.4-46.3); Red Blood Count 3.14 M/uL (4.2-5.4); White Blood Count 22.09 K/uL (4.8-10.8)
[2019-12-13] MEDS: CHOLECALCIFEROL 1,000 UNITS 25 MCG TAB PO SCH (07:59)
[2019-12-13] MEDS: ACETAMINOPHEN 325 MG TAB PO PRN (08:00)
[2019-12-13] MEDS ORDERED: PRENATAL VITAMIN 1 TAB PO SCH (08:00)
[2019-12-13] MEDS: DOCUSATE SODIUM 100 MG CAP PO SCH ×2 (08:00→20:07)
[2019-12-13] MEDS: FERROUS SULFATE 325 MG TAB PO SCH (08:00)
[2019-12-13] MEDS ORDERED: PANTOprazole 40 MG TAB PO SCH (09:00)
[2019-12-13] MEDS ORDERED: CHOLECALCIFEROL 1,000 UNITS 25 MCG TAB PO SCH (09:00)
--- NOTE | 2019-12-13 09:56 | Obstetrical Progress Note ---
Date of Service December 13, 2019 Assessment & Plan Admission and Anticipated Discharge Date Admission Date: December 12, 2019 Subjective PPD#1 stable passing gas no further bleeding tolerating diet Physical Exam Constitutional: WD/WN, vitals as above comfortable fundus firm abdomen soft no edema neg John's will d/c [place] CBC in AM Results & Data ([facility]) Vital Signs (Past 12 Hours) Vital Signs Temp Pulse Resp BP Pulse Ox 12/13/19 07:28 36.7 C 91 H 18 102/59 L 95 12/13/19 03:20 36.8 C 75 16 111/68 12/12/19 23:20 37.0 C 68 18 118/75
[2019-12-13] MEDS: PRENATAL VITAMIN 1 TAB PO SCH (10:00)
[2019-12-13] MEDS ORDERED: bisacodyL 5 MG TABEC PO SCH (20:00)
[2019-12-13] MEDS: SERTRALINE HCL 50 MG TABLET PO SCH (20:07)
[2019-12-14] MEDS: ACETAMINOPHEN 325 MG TAB PO PRN (00:09)
[2019-12-14] MEDS ORDERED: bisacodyL 10 MG SUPP PR PRN (06:00)
[2019-12-14 06:41] LABS: Hematocrit (blood only) 26.9 % (37-47); Hemoglobin 9.4 g/dL (12.0-16.0); Mean Corpuscular Hemoglobin 33.2 pg (25-34); Mean Corpuscular Hgb Conc 34.9 g/dL (32-36); Mean Corpuscular Volume 95.1 fL (80-100); Mean Platelet Volume 10.2 fL (7.4-10.4); Platelet Count 216 K/uL (130-400); RDW Coefficient of Variation 13.8 % (11.5-14.5); Red Blood Count 2.83 M/uL (4.2-5.4)
[2019-12-14 07:50] VITALS: BP 108/64; PULSE 62; TEMP 98.2; O2SAT 100
[2019-12-14] MEDS: DOCUSATE SODIUM 100 MG CAP PO SCH (08:03)
[2019-12-14] MEDS: IBUPROFEN 600 MG TAB PO PRN ×2 (08:03→16:58)
[2019-12-14] MEDS: FERROUS SULFATE 325 MG TAB PO SCH (08:03)
[2019-12-14] MEDS: PRENATAL VITAMIN 1 TAB PO SCH (08:03)
--- NOTE | 2019-12-14 09:57 | Obstetrical Progress Note ---
Date of Service December 14, 2019 Assessment & Plan (1) Normal course: VD Day #2 pt doing well Improved bleeding stable H/H D/c home with instructions Subjective Ambulation: ambulating normally Voiding: no voiding problems Passing Gas:: Yes Diet Tolerance:: regular diet Lochia:: Small Feeding Type:: breast feeding Review of Systems All systems reviewed & are unremarkable except as noted in HPI & below Physical Exam Constitutional WD/WN, vitals as above well developed and well nourished Eyes PERRL, conjunctivae normal, anicteric sclerae Neck trachea midline, no thyromegaly Respiratory normal respiratory effort, lungs clear to auscultation Auscultation: no crackles, no rales and no wheezes Cardiovascular RRR, no murmur, no edema Gastrointestinal (Abdomen) normal bowel sounds, soft, nontender, no hepatosplenomegaly Uterus is below umbilicus Musculoskeletal no cyanosis or clubbing, extremities motor strength 5/5 Skin no rashes, warm and dry Neurologic patellar DTR's 2+ bilat, sensation intact Psychiatric A+Ox3, euthymic affect Genitourinary normal external appearance Results & Data Vital Signs (Past 12 Hours) Vital Signs Temp Pulse Pulse Resp BP Pulse Ox 12/14/19 07:49 36.8 C 62 18 108/64 100 12/14/19 00:12 36.6 C 74 18 115/67
[2019-12-14] MEDS: CHOLECALCIFEROL 1,000 UNITS 25 MCG TAB PO SCH (16:14)
== END 2019-12-14 19:03 | disposition home or self-care (01) | DRG 768 ==
LOC: OPB 00:28 → 4S1 00:33 → 4S2 21:45

== ENCOUNTER 2022-01-12 12:16 | Inpatient (IN) ==
--- NOTE | 2022-01-12 12:53 | Emergency Department Note ---
Impression & Plan Thought disorder Admit to [facility] ED Provider Note NAME: SOLITARIO WONG AGE: 31 SEX: F ARRIVES VIA: Ambulance INFORMANT: Patient ED PROVIDER(S): Claudia Bedoya DO CHIEF COMPLAINT: Off her medications PLAN: Disposition: Admit to [facility] Condition: Fair MEDICAL DECISION MAKING: This is a 31-year-old female patient who presents to the emergency department for evaluation after not taking her medications for the past 1 week. The patient has a history of previous inpatient psychiatric admissions and stopped taking her risperidone approximate 1 week ago when she ran out. The patient was medically cleared and met with the ED psychiatric case management director. She admits that she is hearing voices. She believes that her boyfriend may be trying to harm her. The boyfriend explains that the patient has been manic at times. She has been using her medical marijuana to try to medicate in place of the risperidone. Patient is willing to admit herself voluntarily for inpatient psychiatric care. She has been accepted at [facility] Triage Nursing notes reviewed and agree with them. Prior medical records reviewed Vital Signs: reviewed and unremarkable Differential diagnosis: Mood disorder, thought disorder, suicidal ideation Diagnostics interpreted by me: Laboratory studies: See below HPI: 31/F arrives for evaluation of mental health issues. The patient ran out of risperidone 1 week ago. She states that she does not feel safe at home. She believes that her boyfriend may be trying to hurt her. She admits that she is hearing voices. She has been trying to use her marijuana to help with the symptoms. She denies any suicidal or homicidal ideation. The patient had been admitted to the [facility] earlier this year and was discharged home on medications but has run out of them. ROS: See above HPI for pertinent positives & negatives. A total of 10 systems reviewed and were otherwise negative. PAST MEDICAL HISTORY:See Below PAST SURGICAL HISTORY:See Below FAMILY HISTORY:See Below SOCIAL HISTORY:See Below HOME MEDICATIONS:The patient is not currently taking risperidone. ALLERGIES:Amoxicillin VITALS:See Below PHYSICAL EXAMINATION: HEENT: Head - normocephalic and atraumatic. Pupils are equal, round, and reactive to light. Extraocular eye muscles are intact, and sclera are anicteric. Nose - moist nasal mucosa without discharge. Mouth - moist buccal mucosa. Oropharynx is nonerythematous and there is no tonsillar exudate or edema noted. Neck: Supple; no cervical lymphadenopathy noted. Heart: Regular rate and rhythm. There is a normal S1 and S2 with no murmurs, clicks, or gallops appreciated. Lungs: Clear to auscultation bilaterally with no wheezes, rales, or rhonchi. Abdomen: Soft, completely nontender, nondistended, with good bowel sounds. T here are no palpable pulsatile masses or hepatosplenomegaly. There is no guarding, rigidity, or rebound noted. Extremities: No evidence of cyanosis, clubbing, or edema. There are easily palpable peripheral pulses. Skin: warm and dry with good turgor and no rashes. Psych: The patient makes good eye contact. She denies any suicidal ideation but states that her boyfriend is trying to harm her. He seems slightly paranoid. She has a flat affect. She has a tangential thought process. ED COURSE: Times/Reassessments: 1220: The patient was evaluated in room A6. Complete history and physical was performed. Laboratory studies were drawn as above. The patient was felt to be medically cleared. She was evaluated by the ED psychiatric case management director. The patient is requesting inpatient psychiatric care to help get her back onto her medications. Patient was evaluated by staff from [facility] and they have accepted her. Claudia Bedoya DO Past Med/Surg History Medical History (Updated 01/12/22 @ 17:31 by Claudia Bedoya DO) Bipolar disorder Clostridium difficile colitis Depression H/O gastric ulcer IBD (inflammatory bowel disease) Kidney stones depression After first child hemorrhage after second child Surgical History (System 01/12/22 @ 13:18 by Breann Bowles) H/O hemorrhoidectomy 2017 H/O wisdom tooth extraction S/P ear surgery Family History (System 01/12/22 @ 13:18 by Breann Bowles) Other Cancer Heart disease Social History (System 01/12/22 @ 13:18 by Breann Bowles) Smoking Status: Current every day smoker Tobacco Type: Cigarettes Cigarettes Per Day: 7; Second Hand Exposure: Yes; Hx Alcohol Use: No Hx Substance Use: No Preferred Language: Macedonian Communication Ability: Effective Book Repairer Required: No Beliefs That Will Affect Care: None marital status: Single Current Living Situation: Family and Significant Other Current Living Situation Comment: Lives with fiance and 5 y/o daughter 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 and 9 y/o old daughter parti current occupational status: employed Feels Safe at Home: Hesitant to Answer Assistive Devices: None Allergies Allergies Allergy/AdvReac Type Severity Reaction Status Date / Time amoxicillin Allergy Unknown ITCHY, Verified 01/12/22 13:18 REDNESS Home Meds Home Medications Medication Instructions Recorded Confirmed omeprazole magnesium 20 mg 20 mg PO DAILY 12/12/19 12/12/19 tablet,delayed release (Prilosec OTC) vits no.124-ferrous fum 1 tab PO DAILY 12/12/19 12/12/19 27 mg iron-folic acid 800 mcg tablet ( Vitamin) sertraline 50 mg tablet (Zoloft) 50 mg PO DAILY 12/12/19 12/12/19 famotidine 20 mg tablet 20 mg PO DAILY 01/12/22 01/12/22 norethindrone (contraceptive) 0.35 0.35 mg PO DAILY 01/12/22 01/12/22 mg tablet risperidone 2 mg tablet 2 mg PO DAILY 01/12/22 01/12/22 Results & Data (ED) Vital Signs Vital Signs - 24 hr 01/12/22 12:30 01/12/22 16:27 Temperature 36.8 C Temperature Source Oral Pulse Rate 80 Pulse Rate [Right Finger] 72 Pulse Rhythm Regular Pulse Strength Normal Respiratory Rate 20 16 Respiratory Effort / Characteristics Non-Labored Spontaneous Respiratory Depth Normal Respiratory Pattern Regular Blood Pressure 123/83 Blood Pressure [Right Arm] 113/65 Blood Pressure Mean 96 Blood Pressure Mean [Right Arm] 81 Blood Pressure Position Sitting Pulse Oximetry 98 96 Oxygen Delivery Method Room Air Room Air Sepsis Recent Fever Within 48 Hours No Sepsis New/Unexplained Change in Mental Status N/A Sepsis Action Taken by Nursing No Action Required Laboratory Data Result diagrams: 01/12/22 12:55 01/12/22 12:55 Lab Results 01/12/22 01/12/22 01/12/22 Range/Units 12:55 12:55 12:55 WBC 11.01 H (4.8-10.8) K/uL RBC 4.94 (4.2-5.4) M/uL Hgb 15.6 (12.0-16.0) g/dL Hct 44.0 (37-47) % MCV 89.1 (80-100) fL MCH 31.6 (25-34) pg MCHC 35.5 (32-36) g/dL RDW Std Deviation 43.6 (36.4-46.3) fL RDW Coeff of Cheli 13.3 (11.5-14.5) % Plt Count 295 (130-400) K/uL MPV 10.1 (7.4-10.4) fL Immature Gran % (Auto) 0.3 % Neut % (Auto) 75.9 % Lymph % (Auto) 17.7 % [place] % (Auto) 5.6 % Eos % (Auto) 0.4 % Baso % (Auto) 0.1 % Neut # (Auto) 8.36 H (1.4-6.5) K/uL Lymph # (Auto) 1.95 (1.2-3.4) K/uL [place] # (Auto) 0.62 H (0.11-0.59) K/uL Eos # (Auto) 0.04 (0-0.5) K/uL Baso # (Auto) 0.01 (0-0.2) K/uL Immature Gran # (Auto) 0.03 H (0.00-0.02) K/uL Sodium 137 (136-145) mmol/L Potassium 4.1 (3.5-5.1) mmol/L Chloride 106 (98-107) mmol/L Carbon Dioxide 24 (21-32) mmol/L Anion Gap 7 (3-11) BUN 10 (6-23) mg/dl Creatinine 0.74 (0.6-1.2) mg/dl Est Cr Clr Drug Dosing Not Reportable Est GFR ( Amer) 124.2 ml/min Est GFR (Non-Af Amer) 107.2 ml/min BUN/Creatinine Ratio 13.5 (10-20) Glucose 96 (70-99(Fasting)) mg/dl Calcium 9.7 (8.5-10.1) mg/dl Total Bilirubin 0.6 (0.2-1.0) mg/dl AST 12 L (13-39) U/L ALT 4 L (7-52) U/L Alkaline Phosphatase 63 (34-104) U/L Total Protein 8.2 (6.0-8.3) gm/dl Albumin 4.9 (3.4-5.0) gm/dl Globulin 3.3 (2.5-4.0) gm/dl Albumin/Globulin Ratio 1.5 (0.9-2) TSH 1.104 (0.300-4.500) uIu/ml Urine Color Urine Appearance (Clear) Urine pH (4.5-7.5) Ur Specific [place] (1.000-1.030) Urine Protein (Negative) Urine Glucose (UA) (Negative) Urine Ketones (Negative) Urine Blood (Negative) Urine Nitrite (Negative) Urine Bilirubin (Negative) Urine Urobilinogen (Negative) Ur Leukocyte Esterase (Negative) POC Ur Test (NEG) Salicylates (3.0-30) mg/dl Urine Opiates Screen (Neg) Ur Methadone, Qual (Neg) Acetaminophen (10-30) ug/ml Urine Barbiturates (Neg) Ur Phencyclidine (PCP) (Neg) U Amphetamin/Meth Scrn (Neg) MDMA (Ecstasy) Screen (Neg) U Benzodiazepines Scrn (Neg) Ur Cocaine Metabolite (Neg) U Marijuana (THC) Screen (Neg) Ethyl Alcohol mg/dL (<10.0) mg/dl SARS-CoV-2, RNA, NAAT (NEGATIVE) 01/12/22 01/12/22 01/12/22 Range/Units 12:55 12:55 14:05 WBC (4.8-10.8) K/uL RBC (4.2-5.4) M/uL Hgb (12.0-16.0) g/dL Hct (37-47) % MCV (80-100) fL MCH (25-34) pg MCHC (32-36) g/dL RDW Std Deviation (36.4-46.3) fL RDW Coeff of Cheli (11.5-14.5) % Plt Count (130-400) K/uL MPV (7.4-10.4) fL Immature Gran % (Auto) % Neut % (Auto) % Lymph % (Auto) % [place] % (Auto) % Eos % (Auto) % Baso % (Auto) % Neut # (Auto) (1.4-6.5) K/uL Lymph # (Auto) (1.2-3.4) K/uL [place] # (Auto) (0.11-0.59) K/uL Eos # (Auto) (0-0.5) K/uL Baso # (Auto) (0-0.2) K/uL Immature Gran # (Auto) (0.00-0.02) K/uL Sodium (136-145) mmol/L Potassium (3.5-5.1) mmol/L Chloride (98-107) mmol/L Carbon Dioxide (21-32) mmol/L Anion Gap (3-11) BUN (6-23) mg/dl Creatinine (0.6-1.2) mg/dl Est Cr Clr Drug Dosing Est GFR ( Amer) ml/min Est GFR (Non-Af Amer) ml/min BUN/Creatinine Ratio (10-20) Glucose (70-99(Fasting)) mg/dl Calcium (8.5-10.1) mg/dl Total Bilirubin (0.2-1.0) mg/dl AST (13-39) U/L ALT (7-52) U/L Alkaline Phosphatase (34-104) U/L Total Protein (6.0-8.3) gm/dl Albumin (3.4-5.0) gm/dl Globulin (2.5-4.0) gm/dl Albumin/Globulin Ratio (0.9-2) TSH (0.300-4.500) uIu/ml Urine Color Yellow Urine Appearance Clear (Clear) Urine pH 7.0 (4.5-7.5) Ur Specific [place] 1.009 (1.000-1.030) Urine Protein Negative (Negative) Urine Glucose (UA) Negative (Negative) Urine Ketones Negative (Negative) Urine Blood Negative (Negative) Urine Nitrite Negative (Negative) Urine Bilirubin Negative (Negative) Urine Urobilinogen Negative (Negative) Ur Leukocyte Esterase Negative (Negative) POC Ur Test (NEG) Salicylates < 3.0 L (3.0-30) mg/dl Urine Opiates Screen (Neg) Ur Methadone, Qual (Neg) Acetaminophen < 3 L (10-30) ug/ml Urine Barbiturates (Neg) Ur Phencyclidine (PCP) (Neg) U Amphetamin/Meth Scrn (Neg) MDMA (Ecstasy) Screen (Neg) U Benzodiazepines Scrn (Neg) Ur Cocaine Metabolite (Neg) U Marijuana (THC) Screen (Neg) Ethyl Alcohol mg/dL < 10.0 (<10.0) mg/dl SARS-CoV-2, RNA, NAAT (NEGATIVE) 01/12/22 01/12/22 01/12/22 Range/Units 14:05 14:05 15:20 WBC (4.8-10.8) K/uL RBC (4.2-5.4) M/uL Hgb (12.0-16.0) g/dL Hct (37-47) % MCV (80-100) fL MCH (25-34) pg MCHC (32-36) g/dL RDW Std Deviation (36.4-46.3) fL RDW Coeff of Cheli (11.5-14.5) % Plt Count (130-400) K/uL MPV (7.4-10.4) fL Immature Gran % (Auto) % Neut % (Auto) % Lymph % (Auto) % [place] % (Auto) % Eos % (Auto) % Baso % (Auto) % Neut # (Auto) (1.4-6.5) K/uL Lymph # (Auto) (1.2-3.4) K/uL [place] # (Auto) (0.11-0.59) K/uL Eos # (Auto) (0-0.5) K/uL Baso # (Auto) (0-0.2) K/uL Immature Gran # (Auto) (0.00-0.02) K/uL Sodium (136-145) mmol/L Potassium (3.5-5.1) mmol/L Chloride (98-107) mmol/L Carbon Dioxide (21-32) mmol/L Anion Gap (3-11) BUN (6-23) mg/dl Creatinine (0.6-1.2) mg/dl Est Cr Clr Drug Dosing Est GFR ( Amer) ml/min Est GFR (Non-Af Amer) ml/min BUN/Creatinine Ratio (10-20) Glucose (70-99(Fasting)) mg/dl Calcium (8.5-10.1) mg/dl Total Bilirubin (0.2-1.0) mg/dl AST (13-39) U/L ALT (7-52) U/L Alkaline Phosphatase (34-104) U/L Total Protein (6.0-8.3) gm/dl Albumin (3.4-5.0) gm/dl Globulin (2.5-4.0) gm/dl Albumin/Globulin Ratio (0.9-2) TSH (0.300-4.500) uIu/ml Urine Color Urine Appearance (Clear) Urine pH (4.5-7.5) Ur Specific [place] (1.000-1.030) Urine Protein (Negative) Urine Glucose (UA) (Negative) Urine Ketones (Negative) Urine Blood (Negative) Urine Nitrite (Negative) Urine Bilirubin (Negative) Urine Urobilinogen (Negative) Ur Leukocyte Esterase (Negative) POC Ur Test NEG (NEG) Salicylates (3.0-30) mg/dl Urine Opiates Screen Neg (Neg) Ur Methadone, Qual Neg (Neg) Acetaminophen (10-30) ug/ml Urine Barbiturates Neg (Neg) Ur Phencyclidine (PCP) Neg (Neg) U Amphetamin/Meth Scrn Neg (Neg) MDMA (Ecstasy) Screen Neg (Neg) U Benzodiazepines Scrn Neg (Neg) Ur Cocaine Metabolite Neg (Neg) U Marijuana (THC) Screen Pos H (Neg) Ethyl Alcohol mg/dL (<10.0) mg/dl SARS-CoV-2, RNA, NAAT NEGATIVE (NEGATIVE) Discharge Plan Visit Data Chief Complaint: Mental Health Evaluation ED Provider: Claudia Bedoya Discharge Problem: Thought disorder Discharge Instructions Interventions: ED Discharge Assessment Last Done: 01/12/22 17:03
[2022-01-12 13:13] LABS: Basophils # (auto) 0.01 K/uL (0-0.2); Basophils % (auto) 0.1 %; Eosinophils # (auto) 0.04 K/uL (0-0.5); Eosinophils % (auto) 0.4 %; Hemoglobin 15.6 g/dL (12.0-16.0); Immature Granulocytes # (auto) 0.03 K/uL (0.00-0.02); Immature Granulocytes % (auto) 0.3 %; Lymphocytes # (auto) 1.95 K/uL (1.2-3.4); Lymphocytes % (auto) 17.7 %; Mean Corpuscular Hemoglobin 31.6 pg (25-34); Mean Corpuscular Hgb Conc 35.5 g/dL (32-36); Mean Corpuscular Volume 89.1 fL (80-100); Mean Platelet Volume 10.1 fL (7.4-10.4); Monocytes # (auto) 0.62 K/uL (0.11-0.59); Monocytes % (auto) 5.6 %; Neutrophils # (auto) 8.36 K/uL (1.4-6.5); Neutrophils % (auto) 75.9 %; Platelet Count 295 K/uL (130-400); RDW Coefficient of Variation 13.3 % (11.5-14.5); RDW Standard Deviation 43.6 fL (36.4-46.3); Red Blood Count 4.94 M/uL (4.2-5.4); White Blood Count 11.01 K/uL (4.8-10.8)
[2022-01-12 13:30] LABS: Alanine Aminotransferase 4 U/L (7-52); Albumin Globulin Ratio 1.5 (0.9-2); Albumin Level 4.9 gm/dl (3.4-5.0); Alkaline Phosphatase 63 U/L (34-104); Anion Gap 7 (3-11); Aspartate Aminotransferase 12 U/L (13-39); BUN Creatinine Ratio 13.5 (10-20); Bilirubin,Total 0.6 mg/dl (0.2-1.0); Blood Urea Nitrogen 10 mg/dl (6-23); Calcium 9.7 mg/dl (8.5-10.1); Carbon Dioxide 24 mmol/L (21-32); Chloride 106 mmol/L (98-107); Est GFR (African American) 124.2 ml/min; Est GFR (Non-African American) 107.2 ml/min; Globulin 3.3 gm/dl (2.5-4.0); Glucose 96 mg/dl (70-99(Fasting)); Potassium 4.1 mmol/L (3.5-5.1); Sodium 137 mmol/L (136-145); Total Protein 8.2 gm/dl (6.0-8.3)
[2022-01-12 13:31] LABS: Acetaminophen < 3 ug/ml (10-30); Salicylate < 3.0 mg/dl (3.0-30)
[2022-01-12 14:40] LABS: Appearance Urine Clear (Clear); Bilirubin Urine Negative (Negative); Blood Urine Negative (Negative); Color Urine Yellow; Glucose Urine UA Negative (Negative); Ketones Urine Negative (Negative); Leukocyte Esterase Urine Negative (Negative); Nitrite Urine Negative (Negative); Protein Urine Negative (Negative); Specific Gravity Urine 1.009 (1.000-1.030); Urobilinogen Urine Negative (Negative)
[2022-01-12 15:15] LABS: Amphetamines+Metham, Urine Neg (Neg); Barbiturates, Urine Neg (Neg); Benzodiazepine, Urine Neg (Neg); Cocaine, Urine Neg (Neg); MDMA (Ecstacy), Urine Neg (Neg); Methadone, Urine Neg (Neg); Opiate, Urine Neg (Neg); Phencyclidine, Urine Neg (Neg)
[2022-01-12] MEDS ORDERED: ALUMINUM/MAGNESIUM SUSP 30 ML UDC PO PRN ×2 (16:40→17:19)
[2022-01-12] MEDS ORDERED: hydrOXYzine HCl 25 MG TAB PO PRN ×4 (16:40→17:19)
[2022-01-12] MEDS ORDERED: MAGNESIUM HYDROXIDE SUSP 30 ML UDC PO PRN ×2 (16:40→17:19)
[2022-01-12] MEDS ORDERED: BISMUTH SUBSALICYLATE LIQD 236 ML PO PRN ×2 (16:40→17:19)
[2022-01-12] MEDS ORDERED: ACETAMINOPHEN 325 MG TAB PO PRN ×2 (16:40→17:19)
[2022-01-12] MEDS ORDERED: SODIUM CHLORIDE 0.65% NA SOLN 45 ML (OCEAN) PRN ×2 (16:40→17:19)
[2022-01-12] MEDS ORDERED: risperiDONE 1 MG TABLET PO PRN (17:51)
[2022-01-12] MEDS ORDERED: BENZTROPINE MESYLATE 1 MG TAB PO PRN (17:53)
[2022-01-12] MEDS ORDERED: risperiDONE 1 MG TABLET PO ONE (22:00)
[2022-01-13] MEDS: NORETHINDRONE 0.35 MG PO SCH (08:33)
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
[2022-01-13] MEDS ORDERED: Nursing to Pharmacy Communication SCH (09:00)
[2022-01-13] MEDS: risperiDONE 1 MG TABLET PO SCH (10:51)
[2022-01-13] MEDS: NICOTINE POLACRILEX 2 MG GUM MT PRN (15:39)
[2022-01-13] MEDS: risperiDONE 2 MG TABLET PO SCH (17:16)
[2022-01-14] MEDS: NORETHINDRONE 0.35 MG PO SCH (08:45)
[2022-01-14] MEDS: risperiDONE 1 MG TABLET PO SCH (08:46)
--- NOTE | 2022-01-14 08:51 | Psychiatric Progress Note ---
Date of Service January 14, 2022 Impression / Recommendations Impression The patient is a 31 year old with a history of unspecified psychosis who was admitted for worsening paranoia, auditory hallucinations and depressed mood in the context of running out of her risperidone and increasing use of marijuana. Diagnostically consistent with unspecified psychosis differential includes MDD with psychotic features vs primary psychotic disorder vs marijuana-induced vs BPAD (unlikely given no current symptoms of ifrah). The patient is deemed unstable and requires psychiatric hospitalization for diagnostic clarification, safety and stabilization, medication management and development of further coping skills. MNPR due to acute psychosis with paranoia and difficulty tolerating interactions with peers 01/14/22: Some lessening of psychosis with risperidone re-initiation, no AH today but still paranoia and persecutory delusions. Reviewed fasting lipid panel and glucose labs which are normal. (1) Major depressive disorder with psychotic features: (2) Cannabis dependence with psychotic disorder, unspecified: (3) Thought disorder: 01/14/22: Continue current medications and tx plan. 01/13/22: The patient was admitted to the [facility] ([facility] mental health unit) on q15 min checks (behavioral with suicide precautions) for safety. The patient will participate in group, recreational, and milieu therapies and will be offered additional individual and family sessions as clinically appropriate. -fasting labwork lipid and glucose -risperidone 1mg qAM & 2 mg BD -NRT gum Inventory Assets Strengths: motivated to seek treatment, wants to find employment, has outpatient therapy Needs: additional outpt support, additional coping skills, medication prescriber Suicide Risk Level Suicide Risk Level: Moderate (q15 min suicide checks) Suicide Risk Level Comments: Elevated due to psychosis and depressed mood but denies any SI today and feels safe in the hospital and agrees to alert nursing should this change. No evidence for command AH. Risk Factors Assessment Male: No : Yes Do You Have Access To A Gun?: No Health Problems: No Mental Health Diagnoses: Yes Substance Use Disorders: Yes Previous Attempt: Yes Family History of Suicide: No Previous Psychiatric Hospitalization: Yes Hopelessness: Yes Protective Factors Assessment Responsible for Young Children: Yes Employed: No Stable Relationships: Yes Good Rapport with Provider: Yes Interval History Identifying Information SOLITARIO SMITH is a 31-year-old woman who is currently homeless but has been living with a friend at their apartment in [place] for the past few months, has a history of unspecified psychosis, and was admitted on 01/12/22 16:41 on a 201 voluntary commitment for worsening psychosis. Chief Complaint "I'm so so". Review of Systems Sleep Information Total Hours of Sleep: 5.5 Sleep Comments: pt reports being awake once during the night, around one Meal Information Percent Meal Consumed - Breakfast: 100 Percent Meal Consumed - Lunch: 100 Percent Meal Consumed - Dinner: 75 Nutrition Comment: Not here for dinner Subjective Subjective Patient was seen & assessed and interval progress reviewed with treatment team nursing and social work. Attended groups but otherwise isolative to her room. Spoke with her boyfriend/roommate last night. Feels the risperidone is helping her feel less frightened and calmer and denies any side effects. No SI today and feels her mood is less depressed today. Remains paranoid and fearful at times noting that at times she feels unsafe here in the hospital but can't expand on why. Also feels sense of unease when she talks to her boyfriend which she can't expand on either. Denies AH. Submitted a 72 hour notice this afternoon. Physical Exam Psychiatric Orientation: alert and oriented x 3 Apperance: appropriately dressed and appropriately groomed Eye Contact: + fair eye contact Motor Behavior: no abnormal motor movements Speech: normal rate/rhythm/volume of speech Affect: + anxious affect Mood: + depressed mood and + anxious mood Thought Process: + tangential thought process and + looseness of associations Thought Content: + paranoid, + delusions and + derealization Suicidal Thoughts: denies suicidal thoughts Homicidal Thoughts: denies homicidal thoughts Hallucinations: no auditory hallucinations and no visual hallucinations Cognition: recent memory grossly intact, remote memory grossly intact, attention grossly intact and language grossly intact Estimated Intelligence: consistent with education level Insight: + limited insight Judgement: + limited judgement Vital Signs (Past 24 Hours) Last Vital Signs Temp 36.9 C 01/14/22 06:29 Pulse 92 H 01/14/22 06:29 Resp 20 01/14/22 06:29 BP 101/72 01/14/22 06:31 Pulse Ox 94 01/14/22 06:29 Results & Data ([facility]) Laboratory Results Laboratory Results - last 24 hr 01/14/22 07:13 Fasting Glucose 92 Triglycerides 101 Cholesterol 162 LDL Cholesterol, Calc 101 VLDL Cholesterol, Calc 20 HDL Cholesterol 41 Cholesterol/HDL Ratio 4.0 Current Inpatient Medications Current Inpatient Medications: Current Inpatient Medications Acetaminophen (Acetaminophen 325 Mg Tab) 650 mg PO Q4H PRN PRN Reason: Headache or Minor Fever Stop: 02/11/22 16:39 Al Hydrox/Mg Hydrox/Simethicone (Aluminum/Magnesium Susp 30 Ml Udc) 30 ml PO Q4H PRN PRN Reason: GI Upset Stop: 02/11/22 16:39 Benztropine Mesylate (Benztropine Mesylate 1 Mg Tab) 1 mg PO Q6 PRN PRN Reason: Dystonia Stop: 02/11/22 17:52 Bismuth Subsalicylate (Bismuth Subsalicylate Liqd 236 Ml) 15 ml PO PRN PRN PRN Reason: Loose Stool Stop: 02/11/22 16:39 Hydroxyzine HCl (Hydroxyzine Hcl 25 Mg Tab) 50 mg PO HSZ PRN PRN Reason: Insomnia Stop: 02/11/22 16:39 Hydroxyzine HCl (Hydroxyzine Hcl 25 Mg Tab) 25 mg PO Q4H PRN PRN Reason: Anxiety Stop: 02/11/22 16:39 Magnesium Hydroxide (Magnesium Hydroxide Susp 30 Ml Udc) 30 ml PO DAILY PRN PRN Reason: Constipation Stop: 02/11/22 16:39 Nicotine Polacrilex (Nicotine Polacrilex 2 Mg Gum) 1 piece MT PRN PRN PRN Reason: tobacco cravings Stop: 02/12/22 10:01 Last Admin: 01/13/22 15:39 Dose: 1 piece Documented by: Norethindrone 0.35 Mg - Non-Formulary Patient's Own Med 1 ea PO DAILY RODRICK Stop: 02/12/22 08:59 Last Admin: 01/14/22 08:45 Dose: 1 cap Documented by: Risperidone (Risperidone 1 Mg Tablet) 1 mg PO Q6 PRN PRN Reason: Psychosis Stop: 02/11/22 17:50 Risperidone (Risperidone 1 Mg Tablet) 1 mg PO QAM RODRICK Stop: 02/12/22 10:14 Last Admin: 01/14/22 08:46 Dose: 1 mg Documented by: Risperidone (Risperidone 2 Mg Tablet) 2 mg PO DAILYBD RODRICK Stop: 02/12/22 17:14 Last Admin: 01/13/22 17:16 Dose: 2 mg Documented by: Sodium Chloride (Sodium Chloride 0.65% Na Soln 45 Ml ([place])) 1 - 2 sprays NA PRN PRN PRN Reason: Nasal Dryness/Congestion Stop: 02/11/22 16:39 Mental Health & Subst Abuse Tx Therapist [facility] of Therapist: [facility] Post Discharge Appointments Primary Care Physician Name Of Family Doctor: Dr. Sherice Cross.
[2022-01-14] MEDS: NICOTINE POLACRILEX 2 MG GUM MT PRN ×2 (10:07→18:02)
[2022-01-14 14:51] LABS: Marijuana Quant, GCMS Urine 172 ng/mL (<5)
[2022-01-14] MEDS: risperiDONE 2 MG TABLET PO SCH (17:43)
[2022-01-15] MEDS: risperiDONE 1 MG TABLET PO SCH (07:53)
[2022-01-15] MEDS: NORETHINDRONE 0.35 MG PO SCH (07:53)
--- NOTE | 2022-01-15 08:58 | Psychiatric Progress Note ---
Date of Service January 15, 2022 Impression / Recommendations Impression The patient is a 31 year old with a history of unspecified psychosis who was admitted for worsening paranoia, auditory hallucinations and depressed mood in the context of running out of her risperidone and increasing use of marijuana. Diagnostically consistent with unspecified psychosis differential includes MDD with psychotic features vs primary psychotic disorder vs marijuana-induced vs BPAD (unlikely given no current symptoms of ifrah). The patient is deemed unstable and requires psychiatric hospitalization for diagnostic clarification, safety and stabilization, medication management and development of further coping skills. MNPR due to acute psychosis with paranoia and difficulty tolerating interactions with peers 01/15/22: Tolerating risperidone well without any side effects and improving psychosis with less paranoia and feeling more comfortable engaging. Still having some periods of intrusive thoughts and paranoia related to the apartment complex where she's been living. (1) Major depressive disorder with psychotic features: (2) Cannabis dependence with psychotic disorder, unspecified: (3) Thought disorder: 01/15/22: Continue current medication and tx plan. Needs family meeting. 01/14/22: Continue current medications and tx plan. 01/13/22: The patient was admitted to the [facility] ([facility]) on q15 min checks (behavioral with suicide precautions) for safety. The patient will participate in group, recreational, and milieu therapies and will be offered additional individual and family sessions as clinically appropriate. -fasting labwork lipid and glucose -risperidone 1mg qAM & 2 mg BD -NRT gum Inventory Assets Strengths: motivated to seek treatment, wants to find employment, has outpatient therapy Needs: additional outpt support, additional coping skills, medication prescriber Suicide Risk Level Suicide Risk Level: Moderate (q15 min suicide checks) Suicide Risk Level Comments: Elevated due to psychosis and depressed mood but denies any SI today and feels safe in the hospital and agrees to alert nursing should this change. No AH. Risk Factors Assessment Male: No : Yes Do You Have Access To A Gun?: No Health Problems: No Mental Health Diagnoses: Yes Substance Use Disorders: Yes Previous Attempt: Yes Family History of Suicide: No Previous Psychiatric Hospitalization: Yes Hopelessness: Yes Protective Factors Assessment Responsible for Young Children: Yes Employed: No Stable Relationships: Yes Good Rapport with Provider: Yes Interval History Identifying Information SOLITARIO SMITH is a 31-year-old woman who is currently homeless but has been living with a friend at their apartment in [place] for the past few months, has a history of unspecified psychosis, and was admitted on 01/12/22 16:41 on a 201 voluntary commitment for worsening psychosis. Chief Complaint "I slept well". Review of Systems Sleep Information Total Hours of Sleep: 6 Sleep Comments: pt reports being awake once during the night, around one Meal Information Percent Meal Consumed - Breakfast: 100 Percent Meal Consumed - Lunch: 75 Percent Meal Consumed - Dinner: 100 Nutrition Comment: Subjective Subjective Patient was seen & assessed and interval progress reviewed with treatment team nursing and social work. Out of her room more and attending groups. Some intrusive thoughts last evening regarding concerns about safety of apartment complex. She feels the risperidone is helping she is not having any AH today and feels that her paranoia is lessening. She saw a bug on her towel after her shower but feels this was real and not due to VH. She's been talking to her significant other and not feeling as unsettled. Denies SI, feels her mood is a bit better. No side effects from the risperidone. Physical Exam Psychiatric Orientation: alert and oriented x 3 Apperance: appropriately dressed and appropriately groomed Eye Contact: + fair eye contact Motor Behavior: no abnormal motor movements Speech: normal rate/rhythm/volume of speech Affect: + anxious affect Mood: + depressed mood and + anxious mood Thought Process: linear/logical thought process Thought Content: + paranoid; no delusions and no hopelessness Suicidal Thoughts: denies suicidal thoughts Homicidal Thoughts: denies homicidal thoughts Hallucinations: no auditory hallucinations and no visual hallucinations Cognition: recent memory grossly intact, remote memory grossly intact, attention grossly intact and language grossly intact Estimated Intelligence: consistent with education level Insight: + fair insight Judgement: + fair judgement Vital Signs (Past 24 Hours) Last Vital Signs Temp 36.9 C 01/15/22 06:40 Pulse 94 H 01/15/22 06:42 Resp 18 01/15/22 06:40 BP 106/67 01/15/22 06:42 Pulse Ox 94 01/14/22 06:29 Results & Data (U) Laboratory Results Laboratory Results - last 24 hr 01/12/22 14:05 U Marijuana THC Carboxy 172 H Drug Screen Comment SEE NOTE Current Inpatient Medications Current Inpatient Medications: Current Inpatient Medications Acetaminophen (Acetaminophen 325 Mg Tab) 650 mg PO Q4H PRN PRN Reason: Headache or Minor Fever Stop: 02/11/22 16:39 Al Hydrox/Mg Hydrox/Simethicone (Aluminum/Magnesium Susp 30 Ml Udc) 30 ml PO Q4H PRN PRN Reason: GI Upset Stop: 02/11/22 16:39 Benztropine Mesylate (Benztropine Mesylate 1 Mg Tab) 1 mg PO Q6 PRN PRN Reason: Dystonia Stop: 02/11/22 17:52 Bismuth Subsalicylate (Bismuth Subsalicylate Liqd 236 Ml) 15 ml PO PRN PRN PRN Reason: Loose Stool Stop: 02/11/22 16:39 Hydroxyzine HCl (Hydroxyzine Hcl 25 Mg Tab) 50 mg PO HSZ PRN PRN Reason: Insomnia Stop: 02/11/22 16:39 Hydroxyzine HCl (Hydroxyzine Hcl 25 Mg Tab) 25 mg PO Q4H PRN PRN Reason: Anxiety Stop: 02/11/22 16:39 Magnesium Hydroxide (Magnesium Hydroxide Susp 30 Ml Udc) 30 ml PO DAILY PRN PRN Reason: Constipation Stop: 02/11/22 16:39 Nicotine Polacrilex (Nicotine Polacrilex 2 Mg Gum) 1 piece MT PRN PRN PRN Reason: tobacco cravings Stop: 02/12/22 10:01 Last Admin: 01/14/22 18:02 Dose: 1 piece Documented by: Norethindrone 0.35 Mg - Non-Formulary Patient's Own Med 1 ea PO DAILY RODRICK Stop: 02/12/22 08:59 Last Admin: 01/15/22 07:53 Dose: 1 cap Documented by: Risperidone (Risperidone 1 Mg Tablet) 1 mg PO Q6 PRN PRN Reason: Psychosis Stop: 02/11/22 17:50 Risperidone (Risperidone 1 Mg Tablet) 1 mg PO QAM RODRICK Stop: 02/12/22 10:14 Last Admin: 01/15/22 07:53 Dose: 1 mg Documented by: Risperidone (Risperidone 2 Mg Tablet) 2 mg PO DAILYBD RODRICK Stop: 02/12/22 17:14 Last Admin: 01/14/22 17:43 Dose: 2 mg Documented by: Sodium Chloride (Sodium Chloride 0.65% Na Soln 45 Ml ([place])) 1 - 2 sprays NA PRN PRN PRN Reason: Nasal Dryness/Congestion Stop: 02/11/22 16:39 Mental Health & Subst Abuse Tx Psychiatrist Name of Psychiatrist: Sheree Espino - on waitlist Psychiatrist's Therapist Name of Therapist: Sheree Espino - [place] Therapist's Therapy Appointment Comment: [id number], [address], [place] [address] Post Discharge Appointments Primary Care Physician Name Of Family Doctor: Florian Barrientos - Dr. Sherice Cross Primary Care Provider Appointment Comment: [facility] Radha Joseph [id number]
[2022-01-15] MEDS: NICOTINE POLACRILEX 2 MG GUM MT PRN ×3 (12:46→21:02)
[2022-01-15] MEDS: risperiDONE 2 MG TABLET PO SCH (17:34)
[2022-01-16] MEDS: NORETHINDRONE 0.35 MG PO SCH (08:41)
[2022-01-16] MEDS: risperiDONE 1 MG TABLET PO SCH (08:42)
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
== END 2022-01-16 13:55 | disposition home or self-care (01) | DRG 897 ==
LOC: ED 12:16 → MERGE 12:16 → 3S 16:41